=== PATIENT | female | born 1950 | race Caucasian/White ===

== ENCOUNTER → 2018-03-09 11:40 | Outpatient (CLI) | payer MEDICARE, BC, SELFPAY ==
--- NOTE | 2018-03-09 | DI.MG.S_ITS ---
BILATERAL DIGITAL SCREENING MAMMOGRAM 3D/2D WITH CAD: 03/09/2018 CLINICAL: Routine screening. Family history of breast cancer. Comparison is made to exams dated: 02/23/2017 mammogram, 02/23/2016 mammogram, and 02/21/2015 mammogram - [facility]. There are scattered fibroglandular elements in both breasts. Current study was also evaluated with a Computer Aided Detection (CAD) system. No significant masses, calcifications, or other findings are seen in either breast. There has been no significant interval change. IMPRESSION: NEGATIVE There is no mammographic evidence of malignancy. A 1 year screening mammogram is recommended. This exam was interpreted at Station ID: [id number]. NOTE: For mammograms, a report in lay terms will be sent to the patient. Approximately 15% of breast malignancies will not be visualized mammographically. In the management of a palpable breast mass, a negative mammogram must not discourage biopsy of a clinically suspicious lesion. Electronically Signed By: Terri coleman/paula:03/09/2018 12:53:02 letter sent: Normal Exam ACR BI-RADS Category 1: Negative 3341F
== END ==
PROVIDERS: Family Provider Internal Medicine; PCP Internal Medicine; Visit Provider Internal Medicine
DX: Z12.31 Encounter for screening mammogram for malignant neoplasm of breast (principal); Z80.3 Family history of malignant neoplasm of breast
CPT/HCPCS: 77063; 77067

== ENCOUNTER → 2018-11-27 09:04 | Outpatient (CLI) | payer MEDICARE, BC, SELFPAY ==
[2018-11-27 10:05] LABS: Hemoglobin A1C% w Est Avg Glu 6.5 % (4.0-6.0)
[2018-11-27 10:39] LABS: Alanine Aminotransferase 16 IU/L (9-52); Aspartate Aminotransferase 19 IU/L (14-36); BUN Creatinine Ratio 24.6 (6-22); Blood Urea Nitrogen 32 mg/dL (7-17); Calcium 10.1 mg/dL (8.4-10.2); Carbon Dioxide 24 mmol/L (22-32); Chloride 100 mmol/L (98-107); Cholesterol 166 mg/dL (140-199); Estimated Glomerular Filt Rate 40.6 mL/min (>60); Glucose 124 mg/dL (80-110); HDL Cholesterol 46 mg/dL (40-60); HEMOLYSIS < 15 (0-50); LDL Cholesterol Calculated 43 mg/dL (<100); Sodium 134 mmol/L (137-145); Triglycerides 384 mg/dL (35-150)
[2018-11-27 11:22] LABS: Vitamin B12 > 1000 pg/mL (239-931)
== END ==
PROVIDERS: PCP Internal Medicine; Visit Provider Internal Medicine
DX: E11.9 Type 2 diabetes mellitus without complications (principal); E53.8 Deficiency of other specified B group vitamins; E78.5 Hyperlipidemia, unspecified; I10 Essential (primary) hypertension
CPT/HCPCS: 36415; 80048; 80061; 82607; 83036; 84450; 84460

== ENCOUNTER → 2018-12-08 09:27 | Outpatient (CLI) | payer MEDICARE, BC, SELFPAY | PROVIDERS: PCP Internal Medicine; Visit Provider Internal Medicine | DX: Z78.0 Asymptomatic menopausal state (principal) | CPT/HCPCS: 77080 ==

== ENCOUNTER → 2019-03-24 09:39 | Outpatient (CLI) | payer MEDICARE, BC, SELFPAY ==
--- NOTE | 2019-03-24 | DI.MG.S_ITS ---
BILATERAL DIGITAL SCREENING MAMMOGRAM 3D/2D WITH CAD: 03/24/2019 CLINICAL: Routine screening. Family history of breast cancer. Comparison is made to exams dated: 03/09/2018 mammogram, 02/23/2017 mammogram, and 02/23/2016 mammogram - [facility]. There are scattered fibroglandular elements in both breasts. Current study was also evaluated with a Computer Aided Detection (CAD) system. There are benign calcifications in both breasts. No significant masses, calcifications, or other findings are seen in either breast. There has been no significant interval change. IMPRESSION: There is no mammographic evidence of malignancy. A 1 year screening mammogram is recommended. This exam was interpreted at Station ID: [id number]. NOTE: For mammograms, a report in lay terms will be sent to the patient. Approximately 15% of breast malignancies will not be visualized mammographically. In the management of a palpable breast mass, a negative mammogram must not discourage biopsy of a clinically suspicious lesion. Electronically Signed By: Scottie guevara/paula:03/26/2019 07:16:27 letter sent: Normal Exam ACR BI-RADS Category 2: Benign Finding(s) 3342F
== END ==
PROVIDERS: PCP Internal Medicine; Visit Provider Internal Medicine
DX: Z12.31 Encounter for screening mammogram for malignant neoplasm of breast (principal); Z80.3 Family history of malignant neoplasm of breast
CPT/HCPCS: 77063; 77067

== ENCOUNTER → 2019-06-28 16:57 | Outpatient (CLI) | payer MEDICARE, BC, SELFPAY ==
--- NOTE | 2019-06-28 | DI.RAD.S_ITS ---
PROCEDURE: XR KNEE LT 1TO2V INDICATIONS: ACUTE PAIN OF LEFT KNEE TECHNIQUE: 2 views of the knee were acquired. COMPARISON: None. FINDINGS: Bones: No fractures or dislocations. No suspicious bony lesions. Soft tissues: No joint effusion. No suspicious soft tissue calcifications. IMPRESSION: No trauma found. Source of acute pain is not identified. Dictated by: Chinedu Brooks M.D. on 06/29/2019 at 9:44 Approved by: Chinedu Brooks M.D. on 06/29/2019 at 9:59
== END ==
PROVIDERS: PCP Internal Medicine; Referring Provider Internal Medicine; Visit Provider Internal Medicine
DX: M25.562 Pain in left knee (principal)
CPT/HCPCS: 73560

== ENCOUNTER → 2019-07-06 08:56 | Outpatient (CLI) | payer MEDICARE, BC, SELFPAY ==
--- NOTE | 2019-07-06 | DI.MRI.S_ITS ---
PROCEDURE: MR KNEE LT WO CON INDICATIONS: LEFT KNEE PAIN TECHNIQUE: Noncontrast sagittal PD fast spin echo and T2 fast spin echo with fat saturation, sagittal 3-D FLASH with fat saturation; coronal T1 spin echo and PD fast spin echo with fat saturation, and axial PD fast spin echo with fat saturation through the knee. COMPARISON: [facility], CR, XR KNEE LT 1TO2V, 06/28/2019, 16:59. FINDINGS: Image quality: Excellent. Menisci: There is complex tear involving the body and posterior horn of the medial meniscus. The posterior root of the medial meniscus is torn. There is mild intrasubstance degeneration of the lateral meniscus without yvette meniscal tear. Cruciate ligaments: The anterior cruciate ligament appears thickened and irregular, likely sequelae of old injury (chronic partial tear and scarrimg). No acute ACL tear. The posterior cruciate ligament appears intact. Medial structures: There is grade 1-2 sprain of the distal medial collateral ligament, likely chronic. The semimembranosus tendon insertions are thickened, likely secondary to chronic tear. Visualized portions of the pes anserinus tendons appear normal. Trace amount of fluid is noted in the medial collateral ligament bursa and pes anserinus bursa. Lateral structures: The lateral collateral ligament and biceps femoris tendon appear intact. The popliteus tendon appears normal. Iliotibial band appears normal. Anterior structures: The quadriceps and patellar tendons appear intact. Patellar alignment is normal. No femoral trochlear dysplasia or ventral trochlear prominence. No edema in the infrapatellar fat pad. Bones and cartilage: No bone marrow contusions or fractures. There is tricompartmental cartilage thinning and fibrillation. Full-thickness cartilage defect is noted in the medial femorotibial compartment. Joint space: There is moderate knee joint effusion. A small Gibbs's cyst. Normal appearing synovial plicae are incidentally noted. There is a 7 mm intra-articular body in the posterior knee joint. IMPRESSION: 1. Suspect chronic partial ACL tear and scarring. 2. Complex tear of the body and posterior horn of the medial meniscus. Tear of the posterior root of the medial meniscus. 3. Grade 1-2 sprain of the distal medial collateral ligament. 4. Tricompartmental cartilage thinning and fibrillation. There is full-thickness cartilage defect in the medial femorotibial compartment. 5. Moderate knee joint effusion. 6. Small Gibbs cyst. 7. A 7 mm intra-articular body in the posterior knee joint. Dictated by: Anuradha Guardado M.D. on 07/06/2019 at 10:06 Transcribed by: NIKO on 07/06/2019 at 10:33 Approved by: Anuradha Guardado M.D. on 07/06/2019 at 11:35
== END ==
PROVIDERS: PCP Internal Medicine; Referring Provider Internal Medicine; Visit Provider Internal Medicine
DX: M25.562 Pain in left knee (principal); S83.232A Complex tear of medial meniscus, current injury, left knee, initial encounter; S83.412A Sprain of medial collateral ligament of left knee, initial encounter; M25.462 Effusion, left knee; M71.22 Synovial cyst of popliteal space [Baker], left knee
CPT/HCPCS: 73721

== ENCOUNTER → 2020-03-14 08:34 | Outpatient (CLI) | payer MEDICARE, BC, SELFPAY ==
[2020-03-14 10:33] LABS: Hemoglobin A1C% w Est Avg Glu 6.8 % (4.0-6.0)
[2020-03-14 10:34] LABS: Alanine Aminotransferase 19 IU/L (<35); Albumin 4.4 g/dL (3.5-5.0); Albumin Globulin Ratio 1.4 (1.0-2.8); Alkaline Phosphatase 53 U/L (38-126); Aspartate Aminotransferase 24 IU/L (14-36); BUN Creatinine Ratio 26.9 (6-22); Bilirubin Total 0.3 mg/dL (0.2-1.3); Blood Urea Nitrogen 36 mg/dL (7-17); Calcium 10.5 mg/dL (8.4-10.2); Carbon Dioxide 29 mmol/L (22-32); Chloride 96 mmol/L (98-107); Cholesterol 260 mg/dL (140-199); Globulin 3.2 g/dL (1.7-4.1); Glucose 106 mg/dL (80-110); HDL Cholesterol 35 mg/dL (40-60); HEMOLYSIS < 15 (0-50); Potassium 4.9 mmol/L (3.4-5.1); Sodium 133 mmol/L (137-145); Total Protein 7.6 g/dL (6.3-8.2)
[2020-03-14 10:44] LABS: Triglycerides 692 mg/dL (35-150)
== END ==
PROVIDERS: PCP Internal Medicine; Referring Provider Internal Medicine; Visit Provider Internal Medicine
DX: E78.5 Hyperlipidemia, unspecified (principal); I10 Essential (primary) hypertension; E11.9 Type 2 diabetes mellitus without complications
CPT/HCPCS: 36415; 80053; 80061; 83036

== ENCOUNTER → 2020-06-05 09:36 | Outpatient (CLI) | payer MEDICARE, BC, SELFPAY ==
--- NOTE | 2020-06-05 | DI.MRI.S_ITS ---
PROCEDURE: MR HEAD/BRAIN WO CON INDICATIONS: Tremor, unspecified TECHNIQUE: Non-contrast axial T1 spin echo, axial T2 fast spin echo, sagittal and axial FLAIR, coronal T2 fast spin echo, axial gradient echo, axial diffusion and ADC through the brain. COMPARISON: None. FINDINGS: Image quality: Excellent. CSF spaces: Ventricles appear symmetric in size and shape. Basal cisterns are patent. No extra-axial fluid collections. Brain: No intracranial bleeds or mass effects. There is mild cerebral volume loss for age. There are minimal periventricular and deep white matter chronic small vessel ischemic changes. Brainstem appears normal. Diffusion-weighted images show no acute ischemic insults. No chronic ischemic insults. Normal intravascular flow voids are present. Skull and face: Calvarial bone marrow is normal in signal. Orbits are normal. Sinuses: Minimal left maxillary sinus mucosal thickening. Remainder of the visualized paranasal sinuses and mastoids are clear. IMPRESSION: 1. MRI brain without acute intracranial abnormalities. No mass or mass effect. 2. Minimal left maxillary sinus disease. Dictated by: Scottie Ocampo M.D. on 06/05/2020 at 13:16 Approved by: Scottie Ocampo M.D. on 06/05/2020 at 13:21
== END ==
PROVIDERS: PCP Internal Medicine; Referring Provider Psychiatry & Neurology Neurology; Visit Provider Psychiatry & Neurology Neurology
DX: R25.1 Tremor, unspecified (principal)
CPT/HCPCS: 70551

== ENCOUNTER → 2020-07-03 07:20 | Outpatient (CLI) | payer MEDICARE, BC, SELFPAY ==
--- NOTE | 2020-07-03 | DI.US.S_ITS ---
PROCEDURE: US ABDOMEN COMPLETE INDICATIONS: RIGHT UPPER QUADRANT PAIN TECHNIQUE: Real-time scanning was performed of the abdominal and retroperitoneal organs, with image documentation. COMPARISON: [facility], CT, ABDOMEN/PELVIS WITH CONTRAST, 07/15/2011, 8:44. [facility], US, ABDOMEN COMPLETE, 11/15/2016, 15:47. FINDINGS: Liver: Liver is normal in size and homogeneous in echotexture. The main portal vein demonstrates normal size and demonstrates normal appearing, hepatopetal flow. Gallbladder: No findings of gallstones or sludge are seen. The gallbladder wall is not thickened, measuring 3 mm or less. No specific pericholecystic fluid is seen. The sonographic Rdz sign is negative. Biliary ducts: Intrahepatic bile ducts are non-dilated. Extrahepatic bile duct caliber measures 4 mm. Normal is 6-7 mm or less in diameter, or 10 mm or less post-cholecystectomy. Pancreas: Visualized portions of the pancreas are sonographically normal. Spleen: Spleen is normal in size and homogeneous in echotexture. Kidneys: Kidneys are normal in size and echotexture. Right kidney measures 9.4 cm long; left kidney measures 9.1 cm long. No hydronephrosis. No solid masses. Within the right superior to mid kidney, there is a 7 mm cyst seen. Within the left kidney, there is an apparent 11 mm nonobstructing hyperechoic focus seen. Aorta: Visualized aorta is normal in caliber at less than 3 cm. Iliacs: Proximal common iliac arteries are normal in caliber at less than 2.5 cm. IVC: Intrahepatic inferior vena cava is patent. Miscellaneous: No free abdominal fluid. IMPRESSION: The gallbladder demonstrates a normal sonographic appearance. No biliary dilatation is seen. Apparent nonobstructing left kidney stone. However, this may be related to artifact. Dictated by: Harmeet Dumas M.D. on 07/03/2020 at 9:05 Approved by: Harmeet Dumas M.D. on 07/03/2020 at 9:07
[2020-07-03 08:24] LABS: Alanine Aminotransferase 33 IU/L (<35); Albumin 4.8 g/dL (3.5-5.0); Albumin Globulin Ratio 1.5 (1.0-2.8); Alkaline Phosphatase 31 U/L (38-126); Aspartate Aminotransferase 32 IU/L (14-36); Bilirubin Total 0.5 mg/dL (0.2-1.3); Blood Urea Nitrogen 44 mg/dL (7-17); Calcium 10.4 mg/dL (8.4-10.2); Carbon Dioxide 29 mmol/L (22-32); Chloride 99 mmol/L (98-107); Estimated Glomerular Filt Rate 24.6 mL/min (>60); Globulin 3.2 g/dL (1.7-4.1); Glucose 126 mg/dL (80-110); HEMOLYSIS 15 (0-50); Potassium 4.5 mmol/L (3.4-5.1); Sodium 137 mmol/L (137-145)
== END ==
PROVIDERS: PCP Internal Medicine; Referring Provider Internal Medicine; Visit Provider Family Medicine
DX: R10.11 Right upper quadrant pain (principal); R19.7 Diarrhea, unspecified; E11.9 Type 2 diabetes mellitus without complications; N20.0 Calculus of kidney
CPT/HCPCS: 36415; 76700; 80053

== ENCOUNTER → 2020-08-01 10:29 | Outpatient (CLI) | payer MEDICARE, BC, SELFPAY ==
[2020-08-01 11:20] LABS: Alanine Aminotransferase 13 IU/L (<35); Albumin 4.5 g/dL (3.5-5.0); Albumin Globulin Ratio 1.6 (1.0-2.8); Alkaline Phosphatase 28 U/L (38-126); Aspartate Aminotransferase 24 IU/L (14-36); BUN Creatinine Ratio 25.2 (6-22); Bilirubin Total 0.4 mg/dL (0.2-1.3); Blood Urea Nitrogen 39 mg/dL (7-17); Calcium 9.6 mg/dL (8.4-10.2); Carbon Dioxide 26 mmol/L (22-32); Chloride 99 mmol/L (98-107); Cholesterol 206 mg/dL (140-199); Globulin 2.9 g/dL (1.7-4.1); Glucose 112 mg/dL (80-110); HDL Cholesterol 25 mg/dL (40-60); HEMOLYSIS < 15 (0-50); Potassium 5.1 mmol/L (3.4-5.1); Sodium 134 mmol/L (137-145); Total Protein 7.4 g/dL (6.3-8.2); Triglycerides 477 mg/dL (35-150)
== END ==
PROVIDERS: PCP Internal Medicine; Referring Provider Internal Medicine; Visit Provider Internal Medicine
DX: E78.2 Mixed hyperlipidemia (principal); I10 Essential (primary) hypertension
CPT/HCPCS: 36415; 80053; 80061

== ENCOUNTER → 2020-09-16 09:18 | Outpatient (CLI) | payer MEDICARE, BC, SELFPAY ==
[2020-09-16 10:49] LABS: Alanine Aminotransferase 14 IU/L (<35); Albumin 4.5 g/dL (3.5-5.0); Albumin Globulin Ratio 1.4 (1.0-2.8); Alkaline Phosphatase 28 U/L (38-126); Aspartate Aminotransferase 26 IU/L (14-36); BUN Creatinine Ratio 26.4 (6-22); Bilirubin Total 0.3 mg/dL (0.2-1.3); Blood Urea Nitrogen 47 mg/dL (7-17); Calcium 9.7 mg/dL (8.4-10.2); Carbon Dioxide 25 mmol/L (22-32); Chloride 99 mmol/L (98-107); Cholesterol 176 mg/dL (140-199); Estimated Glomerular Filt Rate 28.1 mL/min (>60); Globulin 3.2 g/dL (1.7-4.1); Glucose 103 mg/dL (80-110); HDL Cholesterol 29 mg/dL (40-60); HEMOLYSIS < 15 (0-50); LDL Cholesterol Calculated 82 mg/dL (<100); Sodium 134 mmol/L (137-145); Total Protein 7.7 g/dL (6.3-8.2); Triglycerides 325 mg/dL (35-150)
== END ==
PROVIDERS: PCP Internal Medicine; Referring Provider Internal Medicine; Visit Provider Internal Medicine
DX: I10 Essential (primary) hypertension (principal)
CPT/HCPCS: 80053; 80061; 83036

== ENCOUNTER → 2020-11-15 10:37 | Outpatient (CLI) | payer MEDICARE, BC, SELFPAY ==
--- NOTE | 2020-11-15 10:40 | DI.MG.S_ITS ---
BILATERAL DIGITAL SCREENING MAMMOGRAM 3D/2D WITH CAD: 11/15/2020 CLINICAL: Routine screening. Family history of breast cancer. Comparison is made to exams dated: 03/24/2019 mammogram, 03/09/2018 mammogram, and 02/23/2017 mammogram - [facility]. There are scattered fibroglandular elements in both breasts. Current study was also evaluated with a Computer Aided Detection (CAD) system. There are benign calcifications in both breasts. No significant masses, calcifications, or other findings are seen in either breast. There has been no significant interval change. IMPRESSION: BENIGN There is no mammographic evidence of malignancy. A 1 year screening mammogram is recommended. This exam was interpreted at Station ID: [id number]. NOTE: For mammograms, a report in lay terms will be sent to the patient. Approximately 15% of breast malignancies will not be visualized mammographically. In the management of a palpable breast mass, a negative mammogram must not discourage biopsy of a clinically suspicious lesion. Electronically Signed By: Flaco vickers/paula:11/17/2020 09:18:47 letter sent: Normal Exam ACR BI-RADS Category 2: Benign Finding(s) 3342F
== END ==
PROVIDERS: PCP Internal Medicine; Referring Provider Internal Medicine; Visit Provider Internal Medicine
DX: Z12.31 Encounter for screening mammogram for malignant neoplasm of breast (principal); Z80.3 Family history of malignant neoplasm of breast
CPT/HCPCS: 77063; 77067

== ENCOUNTER → 2020-11-25 08:59 | Outpatient (CLI) | payer MEDICARE, BC, SELFPAY ==
--- NOTE | 2020-11-25 | DI.US.S_ITS ---
PROCEDURE: US RENAL COMPLETE INDICATIONS: Chronic kidney disease, stage 4 (severe) TECHNIQUE: Real-time scanning was performed of the kidneys and bladder, with image documentation. COMPARISON: None. FINDINGS: Kidneys: Kidneys are normal in size. Right kidney measures 9.6 cm long; left kidney measures 9.1 cm long. Right renal cortical thickness is 1.2 cm; left renal cortical thickness is 1.5 cm. Renal cortical echotexture is normal. No hydronephrosis or nephrolithiasis. No suspicious solid mass lesions. Bladder: Pre-void bladder volume is 114 mL. Post-void residual is 27 mL. Pre-void images demonstrate no intraluminal masses or stones. On pre-void images, bilateral ureteral jets are noted with color Doppler interrogation. (Of note, ureteral jets may not be detectable in up to 25% of cases due to insufficient differences in specific gravity between ureteral and bladder urine). Miscellaneous: No free pelvic fluid. IMPRESSION: No hydronephrosis or nephrolithiasis found. Source of reported chronic renal insufficiency is not identified. Dictated by: Chinedu Brooks M.D. on 11/25/2020 at 12:18 Approved by: Chinedu Brooks M.D. on 11/25/2020 at 12:19
== END ==
PROVIDERS: PCP Internal Medicine; Referring Provider Student in an Organized Health Care Education/Training Program; Visit Provider Student in an Organized Health Care Education/Training Program
DX: N18.4 Chronic kidney disease, stage 4 (severe) (principal)
CPT/HCPCS: 76770

== ENCOUNTER → 2020-12-26 10:40 | Outpatient (CLI) | payer MEDICARE, BC, SELFPAY ==
[2020-12-26 11:07] LABS: Bacteria Urine None Seen; RBC Urine None Seen (0-5/HPF); WBC Urine None Seen (0-5/HPF)
[2020-12-26 11:50] LABS: Hemoglobin 11.2 g/dL (12.0-16.0)
[2020-12-26 11:54] LABS: Blood Urea Nitrogen 38 mg/dL (7-17); Calcium 9.9 mg/dL (8.4-10.2); Carbon Dioxide 26 mmol/L (22-32); Chloride 101 mmol/L (98-107); Estimated Glomerular Filt Rate 35.3 mL/min (>60); Glucose 260 mg/dL (80-110); HEMOLYSIS < 15 (0-50); Phosphorous 3.2 mg/dL (2.8-4.1); Potassium 4.3 mmol/L (3.4-5.1); Sodium 136 mmol/L (137-145)
[2020-12-26 12:28] LABS: Appearance Urine UA CLEAR; Bilirubin Urine UA NEGATIVE (NEGATIVE); Color Urine UA YELLOW; Glucose Urine UA 2+ g/dL (Negative); Ketones Urine UA NEGATIVE (NEGATIVE); Leukocyte Esterase Urine UA NEGATIVE (NEGATIVE); Nitrite Urine UA NEGATIVE (Negative); Occult Blood Urine UA NEGATIVE (Negative); Protein Urine UA NEGATIVE (Negative); Urobilinogen Urine UA 0.2 E.U./dL (0.2)
[2020-12-26 12:38] LABS: Culture Indicated Urine Cult Not Indicated; Urine Comments Microscopic Normal
[2020-12-26 15:20] LABS: Creatinine Urine Random 45.1 mg/dL; Protein (Total) Urine Random 9 mg/dL (0-12); Protein Creatinine Ratio Urine 0.19 GRAM/24H
[2020-12-27 09:38] LABS: Parathyroid Hormone Int 20 pg/mL (15-65)
== END ==
PROVIDERS: PCP Internal Medicine; Referring Provider Student in an Organized Health Care Education/Training Program; Visit Provider Student in an Organized Health Care Education/Training Program
DX: N05.9 Unspecified nephritic syndrome with unspecified morphologic changes (principal); D64.9 Anemia, unspecified; E83.30 Disorder of phosphorus metabolism, unspecified; N25.81 Secondary hyperparathyroidism of renal origin; N30.00 Acute cystitis without hematuria; R80.9 Proteinuria, unspecified
CPT/HCPCS: 36415; 80048; 81001; 82570; 83970; 84100; 84156; 85014; 85018

== ENCOUNTER → 2021-05-06 11:35 | Outpatient (CLI) | payer MEDICARE, BC, SELFPAY ==
[2021-05-06 12:04] LABS: Hematocrit 35.5 % (36-46); Hemoglobin 11.9 g/dL (12.0-16.0)
[2021-05-06 12:16] LABS: BUN Creatinine Ratio 23.2 (6-22); Blood Urea Nitrogen 39 mg/dL (7-17); Carbon Dioxide 31 mmol/L (22-32); Chloride 103 mmol/L (98-107); Estimated Glomerular Filt Rate 29.9 mL/min (>60); Glucose 130 mg/dL (80-110); HEMOLYSIS < 15 (0-50); Potassium 4.2 mmol/L (3.4-5.1); Sodium 143 mmol/L (137-145)
[2021-05-06 16:00] LABS: Protein (Total) Urine Random 33 mg/dL (0-12); Protein Creatinine Ratio Urine 0.61 GRAM/24H
[2021-05-07 05:44] LABS: Parathyroid Hormone Int 22 pg/mL (15-65)
== END ==
PROVIDERS: PCP Internal Medicine; Referring Provider Student in an Organized Health Care Education/Training Program; Visit Provider Student in an Organized Health Care Education/Training Program
DX: N05.9 Unspecified nephritic syndrome with unspecified morphologic changes (principal); D64.9 Anemia, unspecified; N25.81 Secondary hyperparathyroidism of renal origin; R80.9 Proteinuria, unspecified
CPT/HCPCS: 36415; 80048; 82570; 83970; 84156; 85014; 85018

== ENCOUNTER → 2021-08-08 10:39 | Outpatient (CLI) | payer MEDICARE, BC, SELFPAY ==
[2021-08-08 11:08] LABS: Hematocrit 34.5 % (36-46); Hemoglobin 11.8 g/dL (12.0-16.0)
[2021-08-08 11:28] LABS: BUN Creatinine Ratio 27.3 (6-22); Blood Urea Nitrogen 44 mg/dL (7-17); Calcium 9.3 mg/dL (8.4-10.2); Carbon Dioxide 28 mmol/L (22-32); Chloride 101 mmol/L (98-107); Estimated Glomerular Filt Rate 31.5 mL/min (>60); Glucose 226 mg/dL (80-110); HEMOLYSIS < 15 (0-50); Potassium 4.4 mmol/L (3.4-5.1); Sodium 139 mmol/L (137-145)
[2021-08-08 13:44] LABS: Creatinine Urine Random 110.2 mg/dL; Protein (Total) Urine Random 13 mg/dL (0-12); Protein Creatinine Ratio Urine 0.11 GRAM/24H
[2021-08-09 12:11] LABS: Parathyroid Hormone Int 31 pg/mL (15-65)
== END ==
PROVIDERS: PCP Internal Medicine; Referring Provider Student in an Organized Health Care Education/Training Program; Visit Provider Student in an Organized Health Care Education/Training Program
DX: N05.9 Unspecified nephritic syndrome with unspecified morphologic changes (principal); R80.9 Proteinuria, unspecified; D64.9 Anemia, unspecified; N25.81 Secondary hyperparathyroidism of renal origin
CPT/HCPCS: 36415; 80048; 82570; 83970; 84156; 85014; 85018

== ENCOUNTER → 2021-09-16 10:53 | Outpatient (CLI) | payer MEDICARE, BC, SELFPAY ==
[2021-09-16 11:42] LABS: BUN Creatinine Ratio 25.9 (6-22); Blood Urea Nitrogen 43 mg/dL (7-17); Calcium 9.3 mg/dL (8.4-10.2); Carbon Dioxide 27 mmol/L (22-32); Chloride 104 mmol/L (98-107); Estimated Glomerular Filt Rate 33 mL/min (>60); Glucose 281 mg/dL (80-110); HEMOLYSIS < 15 (0-50); Potassium 4.6 mmol/L (3.4-5.1); Sodium 141 mmol/L (137-145)
== END ==
PROVIDERS: PCP Internal Medicine; Referring Provider Student in an Organized Health Care Education/Training Program; Visit Provider Student in an Organized Health Care Education/Training Program
DX: N05.9 Unspecified nephritic syndrome with unspecified morphologic changes (principal)
CPT/HCPCS: 36415; 80048

== ENCOUNTER → 2021-10-09 09:44 | Outpatient (CLI) | payer MEDICARE, BC, SELFPAY ==
[2021-10-09 11:06] LABS: Hemoglobin A1C% w Est Avg Glu 6.7 % (4.0-6.0)
[2021-10-09 11:11] LABS: Alanine Aminotransferase 5 IU/L (<35); Albumin 4.7 g/dL (3.5-5.0); Albumin Globulin Ratio 1.5 (1.0-2.8); Alkaline Phosphatase 31 U/L (38-126); Aspartate Aminotransferase 20 IU/L (14-36); BUN Creatinine Ratio 20.6 (6-22); Bilirubin Total 0.5 mg/dL (0.2-1.3); Blood Urea Nitrogen 40 mg/dL (7-17); Calcium 9.5 mg/dL (8.4-10.2); Carbon Dioxide 27 mmol/L (22-32); Chloride 103 mmol/L (98-107); Cholesterol 68 mg/dL (140-199); Estimated Glomerular Filt Rate 27 mL/min (>60); Globulin 3.1 g/dL (1.7-4.1); Glucose 144 mg/dL (80-110); HDL Cholesterol 24 mg/dL (40-60); HEMOLYSIS < 15 (0-50); LDL Cholesterol Calculated 8 mg/dL (<100); Potassium 4.6 mmol/L (3.4-5.1); Sodium 139 mmol/L (137-145); Total Protein 7.8 g/dL (6.3-8.2); Triglycerides 179 mg/dL (35-150)
== END ==
PROVIDERS: PCP Internal Medicine; Referring Provider Internal Medicine; Visit Provider Internal Medicine
DX: E11.22 Type 2 diabetes mellitus with diabetic chronic kidney disease (principal); N18.32 Chronic kidney disease, stage 3b; E78.2 Mixed hyperlipidemia; I12.9 Hypertensive chronic kidney disease with stage 1 through stage 4 chronic kidney disease, or unspecified chronic kidney disease
CPT/HCPCS: 36415; 80053; 80061; 83036

== ENCOUNTER → 2021-10-15 10:22 | Outpatient (CLI) | payer MEDICARE, BC, SELFPAY ==
--- NOTE | 2021-10-15 | DI.RAD.S_ITS ---
PROCEDURE: XR HIP W PEL IF DONE RT 2V INDICATIONS: Pain in right hip TECHNIQUE: Two views of the hip were acquired. COMPARISON: None. FINDINGS: Bones: No fractures or dislocations. No suspicious bony lesions. The visualized pelvic ring mild bilateral hip joint space narrowing with marginal osteophytosis. No suspicious lytic or blastic osseous lesion. Normal morphology of the femoral heads and acetabula. Sacroiliac joint spaces maintained. IMPRESSION: Mild bilateral hip osteoarthritis. Dictated by: Nahun Zamora M.D. on 10/15/2021 at 11:46 Approved by: Nahun Zamora M.D. on 10/15/2021 at 11:46
== END ==
PROVIDERS: PCP Internal Medicine; Referring Provider Internal Medicine; Visit Provider Internal Medicine
DX: M25.551 Pain in right hip (principal); M16.0 Bilateral primary osteoarthritis of hip
CPT/HCPCS: 73502

== ENCOUNTER → 2021-11-21 09:52 | Outpatient (CLI) | payer MEDICARE, BC, SELFPAY ==
--- NOTE | 2021-11-21 09:53 | DI.MG.S_ITS ---
BILATERAL DIGITAL SCREENING MAMMOGRAM 3D/2D WITH CAD: 11/21/2021 CLINICAL: Routine screening. Family history of breast cancer. Comparison is made to exams dated: 11/15/2020 mammogram, 03/24/2019 mammogram, 03/09/2018 mammogram, and 02/23/2017 mammogram - [facility]. There are scattered fibroglandular elements in both breasts. Current study was also evaluated with a Computer Aided Detection (CAD) system. There are benign calcifications in both breasts. No significant masses, calcifications, or other findings are seen in either breast. There has been no significant interval change. IMPRESSION: BENIGN There is no mammographic evidence of malignancy. A 1 year screening mammogram is recommended. Based on the Tyrer Cuzick model (a risk assessment model) the patient's lifetime risk is 4.8% and her 10 year risk is 3.6%. According to the ACR, ACS, and NCCN guidelines, an annual breast MRI exam along with mammogram is recommended if the patient's lifetime risk is 20% or greater. This exam was interpreted at Station ID: [id number]. NOTE: For mammograms, a report in lay terms will be sent to the patient. Approximately 15% of breast malignancies will not be visualized mammographically. In the management of a palpable breast mass, a negative mammogram must not discourage biopsy of a clinically suspicious lesion. Electronically Signed By: Conrad carter/paula:11/23/2021 09:04:12 letter sent: Normal Exam ACR BI-RADS Category 2: Benign Finding(s) 3342F
== END ==
PROVIDERS: PCP Internal Medicine; Referring Provider Internal Medicine; Visit Provider Internal Medicine
DX: Z12.31 Encounter for screening mammogram for malignant neoplasm of breast (principal); Z80.3 Family history of malignant neoplasm of breast
CPT/HCPCS: 77063; 77067

== ENCOUNTER → 2022-01-07 10:50 | Outpatient (CLI) | payer MEDICARE, BC, SELFPAY ==
[2022-01-07 12:31] LABS: Hematocrit 37.9 % (36-46); Hemoglobin 12.8 g/dL (12.0-16.0)
[2022-01-07 12:37] LABS: BUN Creatinine Ratio 20.9 (6-22); Blood Urea Nitrogen 28 mg/dL (7-17); Calcium 9.1 mg/dL (8.4-10.2); Carbon Dioxide 26 mmol/L (22-32); Chloride 104 mmol/L (98-107); Estimated Glomerular Filt Rate 42 mL/min (>60); Glucose 187 mg/dL (80-110); HEMOLYSIS < 15 (0-50); Potassium 4.1 mmol/L (3.4-5.1); Sodium 138 mmol/L (137-145)
[2022-01-07 15:07] LABS: Creatinine Urine Random 172.7 mg/dL; Protein (Total) Urine Random 6 mg/dL (0-12); Protein Creatinine Ratio Urine 0.03 GRAM/24H
[2022-01-08 05:47] LABS: Parathyroid Hormone Int 32 pg/mL (15-65)
== END ==
PROVIDERS: PCP Internal Medicine; Referring Provider Student in an Organized Health Care Education/Training Program; Visit Provider Student in an Organized Health Care Education/Training Program
DX: N05.9 Unspecified nephritic syndrome with unspecified morphologic changes (principal); D64.9 Anemia, unspecified; N25.81 Secondary hyperparathyroidism of renal origin; R80.9 Proteinuria, unspecified
CPT/HCPCS: 36415; 80048; 82570; 83970; 84156; 85014; 85018

== ENCOUNTER → 2022-06-03 11:14 | Outpatient (CLI) | payer MEDICARE, BC, SELFPAY ==
[2022-06-03 11:54] LABS: Hematocrit 40.2 % (36-46); Hemoglobin 13.5 g/dL (12.0-16.0)
[2022-06-03 12:02] LABS: Blood Urea Nitrogen 31 mg/dL (7-17); Calcium 10.1 mg/dL (8.4-10.2); Carbon Dioxide 23 mmol/L (22-32); Chloride 99 mmol/L (98-107); Estimated Glomerular Filt Rate 41 mL/min (>60); Glucose 309 mg/dL (80-110); HEMOLYSIS < 15 (0-50); Potassium 4.1 mmol/L (3.4-5.1); Sodium 137 mmol/L (137-145)
[2022-06-03 15:28] LABS: Creatinine Urine Random 230.7 mg/dL; Protein (Total) Urine Random 11 mg/dL (0-12); Protein Creatinine Ratio Urine 0.04 GRAM/24H
[2022-06-04 10:49] LABS: Parathyroid Hormone Int 12 pg/mL (15-65)
== END ==
PROVIDERS: PCP Internal Medicine; Referring Provider Student in an Organized Health Care Education/Training Program; Visit Provider Student in an Organized Health Care Education/Training Program
DX: N05.9 Unspecified nephritic syndrome with unspecified morphologic changes (principal); D64.9 Anemia, unspecified; N25.81 Secondary hyperparathyroidism of renal origin; R80.9 Proteinuria, unspecified
CPT/HCPCS: 36415; 80048; 82570; 83970; 84156; 85014; 85018

== ENCOUNTER → 2022-09-14 09:43 | Outpatient (CLI) | payer MEDICARE, BC, SELFPAY ==
--- NOTE | 2022-09-14 | DI.RAD.S_ITS ---
PROCEDURE: XR KNEE RT 3V INDICATIONS: KNEE PAIN TECHNIQUE: 3 views of the knee were acquired. COMPARISON: [facility], CR, XR KNEE LT 1TO2V, 06/28/2019, 16:59. FINDINGS: Bones: No fractures or dislocations. No suspicious bony lesions. Soft tissues: No joint effusion. No suspicious soft tissue calcifications. IMPRESSION: No acute fracture. No osseous lesion. If symptoms and/or clinical suspicion for pathology persist, further assessment with repeat, or advanced imaging (e.g., CT, MRI, or bone scan) may be helpful for further assessment. Dictated by: Millicent Hoover M.D. on 09/14/2022 at 10:39 Approved by: Millicent Hoover M.D. on 09/14/2022 at 10:40
--- NOTE | 2022-09-14 | DI.RAD.S_ITS ---
PROCEDURE: XR KNEE LT 3V INDICATIONS: KNEE PAIN TECHNIQUE: 3 views of the knee were acquired. COMPARISON: [facility], CR, XR KNEE 4+ VIEWS BILATERAL, 02/16/2022, 10:33. [facility], CR, XR KNEE LT 1TO2V, 06/28/2019, 16:59. FINDINGS: Bones: No fractures or dislocations. No suspicious bony lesions. Mild tricompartmental joint space narrowing. Spurring of the lateral patellofemoral compartments is present. Soft tissues: No joint effusion. No suspicious soft tissue calcifications. IMPRESSION: No acute osseous abnormality. Tricompartmental degenerative changes of the knee are present. If symptoms persist, follow-up radiographs and/or CT or MRI may be helpful for further evaluation. Dictated by: Mauro Blackburn M.D. on 09/14/2022 at 11:00 Approved by: Mauro Blackburn M.D. on 09/14/2022 at 11:05
== END ==
PROVIDERS: PCP Internal Medicine; Referring Provider Internal Medicine; Visit Provider Internal Medicine
DX: M25.561 Pain in right knee (principal); M25.562 Pain in left knee; G89.29 Other chronic pain
CPT/HCPCS: 73562

== ENCOUNTER → 2022-10-25 10:16 | Outpatient (CLI) | payer MEDICARE, BC, SELFPAY ==
[2022-10-25 12:19] LABS: Hematocrit 39.7 % (36-46); Hemoglobin 13.5 g/dL (12.0-16.0)
[2022-10-25 12:51] LABS: BUN Creatinine Ratio 24.2 (6-22); Blood Urea Nitrogen 32 mg/dL (7-17); Calcium 9.6 mg/dL (8.4-10.2); Carbon Dioxide 27 mmol/L (22-32); Chloride 98 mmol/L (98-107); Estimated Glomerular Filt Rate 43 mL/min (>60); Glucose 244 mg/dL (80-110); HEMOLYSIS < 15 (0-50); Potassium 3.9 mmol/L (3.4-5.1); Sodium 135 mmol/L (137-145)
[2022-10-27 11:16] LABS: Parathyroid Hormone Int 13 pg/mL (15-65)
== END ==
PROVIDERS: PCP Internal Medicine; Referring Provider Student in an Organized Health Care Education/Training Program; Visit Provider Student in an Organized Health Care Education/Training Program
DX: D64.9 Anemia, unspecified (principal); R80.9 Proteinuria, unspecified; N05.9 Unspecified nephritic syndrome with unspecified morphologic changes; N25.81 Secondary hyperparathyroidism of renal origin
CPT/HCPCS: 36415; 80048; 83970; 85014; 85018

== ENCOUNTER → 2023-01-18 09:46 | Outpatient (CLI) | payer MEDICARE, BC, SELFPAY ==
--- NOTE | 2023-01-18 | DI.MG.S_ITS ---
BILATERAL DIGITAL SCREENING MAMMOGRAM 3D/2D WITH CAD: 01/18/2023 CLINICAL: Routine screening. Family history of breast cancer. Comparison is made to exams dated: 11/21/2021 mammogram, 11/15/2020 mammogram, and 03/24/2019 mammogram - [facility]. There are scattered areas of fibroglandular density in both breasts (category b / 25%-50% glandular tissue). Current study was also evaluated with a Computer Aided Detection (CAD) system. There is a developing irregular high density focal asymmetry in the right breast at 7 o'clock anterior depth. No other significant masses, calcifications, or other findings are seen in either breast. IMPRESSION: INCOMPLETE: NEEDS ADDITIONAL IMAGING EVALUATION The developing irregular high density focal asymmetry in the right breast is indeterminate. Additional views with possible ultrasound are recommended. Based on the Tyrer Cuzick model (a risk assessment model) the patient's lifetime risk is 4.5% and her 10 year risk is 3.7%. According to the ACR, ACS, and NCCN guidelines, an annual breast MRI exam along with mammogram is recommended if the patient's lifetime risk is 20% or greater. This exam was interpreted at Station ID: [id number]. NOTE: For mammograms, a report in lay terms will be sent to the patient. Approximately 15% of breast malignancies will not be visualized mammographically. In the management of a palpable breast mass, a negative mammogram must not discourage biopsy of a clinically suspicious lesion. Electronically Signed By: Tasneem orellana/paula:01/18/2023 12:53:39 letter sent: Additional Imaging Needed ACR BI-RADS Category 0: Incomplete 3340F
== END ==
PROVIDERS: PCP Internal Medicine; Referring Provider Internal Medicine; Visit Provider Internal Medicine
DX: Z12.31 Encounter for screening mammogram for malignant neoplasm of breast (principal); Z80.3 Family history of malignant neoplasm of breast
CPT/HCPCS: 77063; 77067

== ENCOUNTER → 2023-01-31 08:34 | Outpatient (CLI) | payer MEDICARE, BC, SELFPAY ==
--- NOTE | 2023-01-31 | DI.US.S_ITS ---
LIMITED ULTRASOUND OF RIGHT BREAST: 01/31/2023 CLINICAL: Patient returns today to evaluate a focal asymmetry in the right breast. Comparison is made to exams dated: 01/31/2023 mammogram, 01/18/2023 mammogram, 11/21/2021 mammogram, and 11/15/2020 mammogram - [facility]. Color flow and real-time ultrasound of the right breast 9 o'clock region were performed. No sonographic abnormality is seen in the right breast at 9 o'clock, 4 cm from the nipple. IMPRESSION: NEGATIVE Right breast superimposition of normal breast tissue with confirmatory negative ultrasound. No mammographic or sonographic evidence of malignancy. Recommend routine annual mammogram screening in 1 year. Findings and recommendations were conveyed to the patient during today's evaluation. This exam was interpreted at Station ID: [id number]. Electronically Signed By: Geno horn/:02/01/2023 12:42:31 letter sent: Normal Exam Ultrasound BI-RADS: 1 Negative
--- NOTE | 2023-01-31 | DI.MG.S_ITS ---
UNILATERAL RIGHT DIGITAL DIAGNOSTIC MAMMOGRAM 3D/2D WITH ADDITIONAL VIEWS: 01/31/2023 CLINICAL: Additional evaluation requested from prior study. Comparison is made to exams dated: 01/18/2023 mammogram, 11/21/2021 mammogram, and 11/15/2020 mammogram - [facility]. There are scattered areas of fibroglandular density in the right breast (category b / 25%-50% glandular tissue). The focal asymmetry seen on recent screening mammogram did not persist with additional imaging, and is consistent with superimposition of normal breast breast. No significant masses, calcifications, or other findings are seen in the breast. IMPRESSION: INCOMPLETE: NEEDS ADDITIONAL IMAGING EVALUATION No mammographic evidence of malignancy. Recommend further evaluation with targeted breast ultrasound, which will immediately follow this exam. Based on the Tyrer Cuzick model (a risk assessment model) the patient's lifetime risk is 4.2% and her 10 year risk is 3.8%. According to the ACR, ACS, and NCCN guidelines, an annual breast MRI exam along with mammogram is recommended if the patient's lifetime risk is 20% or greater. This exam was interpreted at Station ID: [id number]. NOTE: For mammograms, a report in lay terms will be sent to the patient. Approximately 15% of breast malignancies will not be visualized mammographically. In the management of a palpable breast mass, a negative mammogram must not discourage biopsy of a clinically suspicious lesion. Electronically Signed By: Geno Harvey M.D. esb/:02/01/2023 12:21:34 ACR BI-RADS Category 0: Incomplete 3340F
== END ==
PROVIDERS: PCP Internal Medicine; Referring Provider Internal Medicine; Visit Provider Internal Medicine
DX: R92.8 Other abnormal and inconclusive findings on diagnostic imaging of breast (principal)
CPT/HCPCS: 76642; 77065; G0279

== ENCOUNTER → 2023-04-18 10:03 | Outpatient (CLI) | payer MEDICARE, BC, SELFPAY ==
[2023-04-18 11:17] LABS: Hematocrit 39.1 % (36-46); Hemoglobin 13.5 g/dL (12.0-16.0)
[2023-04-18 12:11] LABS: BUN Creatinine Ratio 23.3 (6-22); Blood Urea Nitrogen 30 mg/dL (7-17); Calcium 9.7 mg/dL (8.4-10.2); Carbon Dioxide 25 mmol/L (22-32); Chloride 99 mmol/L (98-107); Estimated Glomerular Filt Rate 44 mL/min (>60); Glucose 136 mg/dL (80-110); HEMOLYSIS < 15 (0-50); Potassium 4.3 mmol/L (3.4-5.1); Sodium 135 mmol/L (137-145)
[2023-04-19 14:29] LABS: Creatinine Urine Random 59.7 mg/dL; Protein (Total) Urine Random 14 mg/dL (0-12); Protein Creatinine Ratio Urine 0.23 GRAM/24H
[2023-04-20 06:55] LABS: Parathyroid Hormone Int 29 pg/mL (15-65)
== END ==
PROVIDERS: PCP Internal Medicine; Referring Provider Student in an Organized Health Care Education/Training Program; Visit Provider Student in an Organized Health Care Education/Training Program
DX: N05.9 Unspecified nephritic syndrome with unspecified morphologic changes (principal); D70.9 Neutropenia, unspecified; D63.1 Anemia in chronic kidney disease; N25.81 Secondary hyperparathyroidism of renal origin; R80.9 Proteinuria, unspecified
CPT/HCPCS: 36415; 80048; 82570; 83970; 84156; 85014; 85018

== ENCOUNTER → 2023-12-21 10:27 | Outpatient (CLI) | payer MEDICARE, BC, SELFPAY ==
[2023-12-21 11:51] LABS: Hematocrit 40.3 % (36-46); Hemoglobin 13.7 g/dL (12.0-16.0)
[2023-12-21 12:05] LABS: BUN Creatinine Ratio 23.1 (6-22); Blood Urea Nitrogen 30 mg/dL (7-17); Calcium 9.2 mg/dL (8.4-10.2); Carbon Dioxide 24 mmol/L (22-32); Chloride 104 mmol/L (98-107); Estimated Glomerular Filt Rate 43 mL/min (>60); Glucose 146 mg/dL (80-110); HEMOLYSIS < 15 (0-50); Potassium 4.5 mmol/L (3.4-5.1); Sodium 138 mmol/L (137-145)
[2023-12-21 12:19] LABS: Creatinine Urine Random 221.49 mg/dL; Protein (Total) Urine Random 15 mg/dL (0-12); Protein Creatinine Ratio Urine 0.06 GRAM/24H
== END ==
PROVIDERS: PCP Internal Medicine; Referring Provider Student in an Organized Health Care Education/Training Program; Visit Provider Student in an Organized Health Care Education/Training Program
DX: N05.9 Unspecified nephritic syndrome with unspecified morphologic changes (principal); D70.9 Neutropenia, unspecified; D63.1 Anemia in chronic kidney disease; R80.9 Proteinuria, unspecified; N25.81 Secondary hyperparathyroidism of renal origin
CPT/HCPCS: 36415; 80048; 82570; 83970; 84156; 85014; 85018

== ENCOUNTER 2024-01-10 13:54 | Emergency (ER) | payer MEDICARE, BC, SELFPAY ==
[2024-01-10 14:01] VITALS: BP 182/89; PULSE 62; RESP 18; TEMP 36.6; O2SAT 98; BMI 24.0
--- NOTE | 2024-01-10 15:15 | EKG_ITS ---
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
[2024-01-10 15:18] LABS: Add Manual Diff / Slide Review NO; Basophils Absolute Auto 100 /uL (0-100); Basophils Percent Auto 0.9 % (0-2); Eosinophils Absolute Auto 200 /uL (0-450); Eosinophils Percent Auto 2.5 % (2-4); Hematocrit 41.7 % (36-46); Hemoglobin 14.3 g/dL (12.0-16.0); Lymphocytes Absolute Auto 1800 /uL (1100-4500); Lymphocytes Percent Auto 22.4 % (25-40); Mean Corpuscular HGB Conc 34.4 % (30-36); Mean Corpuscular Hemoglobin 32.7 PG (26-34); Monocytes Absolute Auto 900 /uL (0-900); Monocytes Percent Auto 11.5 % (3-14); Neutrophils Absolute Auto 5000 /uL (1500-7000); Neutrophils Percent Auto 62.7 % (50-75); Platelet Count 253 X10^3/uL (150-400); Red Blood Cell Count 4.39 X10^6/uL (4.0-5.2); Red Cell Distribution Width 12.7 % (11.6-14.8); White Blood Cell Count 8.1 X10^3/uL (4.5-11.0)
[2024-01-10 15:25] LABS: Alanine Aminotransferase 11 IU/L (<35); Albumin Globulin Ratio 1.4 (1.0-2.8); Alkaline Phosphatase 55 U/L (38-126); Aspartate Aminotransferase 21 IU/L (14-36); BUN Creatinine Ratio 25.9 (6-22); Bilirubin Total 0.8 mg/dL (0.2-1.3); Blood Urea Nitrogen 35 mg/dL (7-17); Calcium 10.6 mg/dL (8.4-10.2); Carbon Dioxide 17 mmol/L (22-32); Chloride 106 mmol/L (98-107); Estimated Glomerular Filt Rate 41 mL/min (>60); Globulin 3.5 g/dL (1.7-4.1); Glucose 153 mg/dL (80-110); HEMOLYSIS 48 (0-50); Lipase 222 U/L (23-300); Potassium 4.5 mmol/L (3.4-5.1); Sodium 138 mmol/L (137-145); Total Protein 8.5 g/dL (6.3-8.2)
[2024-01-10] MEDS: KETOROLAC 30 MG/ML VIAL 15 MG IV (15:28)
--- NOTE | 2024-01-10 15:34 | PC.NURSE ---
Addendum entered by Marimar Ramos R.N. 01/10/24 15:58: Reassessed pt pain and pt states that she is resting more comfortably. Pt not writing in pain and rates pain as 5/10. Original Note: Pt writing in pain in bed. States that her abd is burning and now radiating into her lower back and thighs. Dr Masterson notified and placed order for 15mg IV toradol. Pt ambulated to bathroom independently and with steady gait.
--- NOTE | 2024-01-10 15:38 | PC.NURSE ---
DIRECTOR OF PRODUCT MANAGEMENT note: pt. requested warm blanket. this associate director of sales brought in warm blanket and helped reposition pt. several times, and brought in extra pillow for support, but pt. could not seem to get comfortable and verbalized pain was worsening. RN notified.
[2024-01-10 16:22] LABS: Bacteria Urine Occasional (0-1); RBC Urine None Seen (0-5/HPF); Squamous Epithelial Cell Urine 0-1 /HPF (0-5/HPF); Urine Volume 10mL (spun); WBC Urine None Seen (0-5/HPF)
[2024-01-10 16:23] LABS: Culture Indicated Urine Cult Not Indicated
== END 2024-01-10 17:33 | disposition left against medical advice (07) ==
PROVIDERS: Emergency Provider Emergency Medicine; PCP Internal Medicine
DX: R30.0 Dysuria (principal); R50.9 Fever, unspecified; R10.9 Unspecified abdominal pain; I48.92 Unspecified atrial flutter
CPT/HCPCS: 36415; 80053; 81003; 81015; 83690; 85025; 93005; 93010; 99284; J1885

== ENCOUNTER 2024-01-18 17:29 | Emergency (ER) | payer MEDICARE, BC, SELFPAY ==
[2024-01-18] VITALS (17 sets, daily range): BP systolic 105–160; BP diastolic 58–112; PULSE 63–94; RESP 16–42; TEMP 36.6; O2SAT 94–100; BMI 23.8
[2024-01-18] MEDS: ONDANSETRON 4 MG/2 ML INJ IV (17:58)
[2024-01-18 18:13] LABS: Add Manual Diff / Slide Review NO; Basophils Absolute Auto 0 /uL (0-100); Basophils Percent Auto 0.9 % (0-2); Eosinophils Absolute Auto 100 /uL (0-450); Eosinophils Percent Auto 1.8 % (2-4); Hematocrit 39.3 % (36-46); Hemoglobin 13.5 g/dL (12.0-16.0); Lymphocytes Absolute Auto 1700 /uL (1100-4500); Lymphocytes Percent Auto 28.3 % (25-40); Mean Corpuscular HGB Conc 34.3 % (30-36); Mean Corpuscular Hemoglobin 33.1 PG (26-34); Mean Corpuscular Volume 96.3 fL (80-100); Monocytes Absolute Auto 600 /uL (0-900); Monocytes Percent Auto 11.1 % (3-14); Neutrophils Absolute Auto 3400 /uL (1500-7000); Neutrophils Percent Auto 57.9 % (50-75); Platelet Count 217 X10^3/uL (150-400); Red Blood Cell Count 4.08 X10^6/uL (4.0-5.2); Red Cell Distribution Width 12.3 % (11.6-14.8); White Blood Cell Count 5.9 X10^3/uL (4.5-11.0)
[2024-01-18 18:30] LABS: Alanine Aminotransferase 11 IU/L (<35); Albumin 4.6 g/dL (3.5-5.0); Albumin Globulin Ratio 1.6 (1.0-2.8); Alkaline Phosphatase 60 U/L (38-126); Aspartate Aminotransferase 21 IU/L (14-36); BUN Creatinine Ratio 25.7 (6-22); Blood Urea Nitrogen 47 mg/dL (7-17); Calcium 10.4 mg/dL (8.4-10.2); Carbon Dioxide 17 mmol/L (22-32); Chloride 101 mmol/L (98-107); Estimated Glomerular Filt Rate 29 mL/min (>60); Globulin 2.9 g/dL (1.7-4.1); Glucose 122 mg/dL (80-110); HEMOLYSIS < 15 (0-50); Lipase 286 U/L (23-300); Potassium 4.3 mmol/L (3.4-5.1); Sodium 134 mmol/L (137-145); Total Protein 7.5 g/dL (6.3-8.2)
--- NOTE | 2024-01-18 18:43 | PC.NURSE ---
iv placed by another nurse
--- NOTE | 2024-01-18 18:50 | PC.NURSE ---
yulia was hyperventilating when she first got into the room. she was coached to slow her breathing down. The patient's breathing leveled off around 14 Rpm. provider aware.
[2024-01-18] MEDS: SODIUM CHLORIDE 0.9% 1,000 ML 1000 ML IV ×2 (18:52→21:39)
[2024-01-18 19:02] LABS: Lactate (Lactic Acid) 2.8 mmol/L (0.7-2.1)
--- NOTE | 2024-01-18 19:12 | PC.NURSE ---
Patient in room and breathing fast. Patient's stated that the patient isn't doing well. Provider and charge made aware. Will continue to monitor
--- NOTE | 2024-01-18 19:21 | EKG_ITS ---
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
--- NOTE | 2024-01-18 19:22 | EKG_ITS ---
[facility] [address] [place] [address] Test Date: 2024-01-18 Pat Name: Mónica Banuelos Department: 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
[2024-01-18] MEDS: LORazepam 2 MG/ML INJ 0.5 MG IV (19:53)
[2024-01-18 20:29] LABS: Reflexed Lactate in 2 Hours Y
--- NOTE | 2024-01-18 20:48 | ED.DIZZY ---
HPI - Dizziness General Chief Complaint: Weakness Stated Complaint: dizzy, sob, nausea Time Seen by Provider: 01/18/24 18:49 Source: patient, RN notes reviewed and other Mode of arrival: Wheelchair Limitations: no limitations History of Present Illness HPI Narrative: 73-year-old history of Parkinson's disease, hypertension, [id number] diabetes, dyslipidemia who presents with complaint of urinary symptoms with frequency and sense of urgency since last Tuesday. Patient was treating herself with fluids and Pyridium. She was deemed to be seen here in the emergency department and left [facility]. Patient states she saw the physician was started on Bactrim but then started having nausea and vomiting she has had no fevers but had chills. Describes nausea and vomiting has felt lightheaded but no syncope. States it has not like the room is spinning but that she was going to pass out. Denies any chest pain or shortness of breath. Denies any cold cough or congestion symptoms. States no real abdominal pain other than pressure in the bladder area and urgency and frequency. States she has been urinating regularly and feels like she is emptying her bladder when she does. She states normal bowel movements with no black or bloody stools. Denies any headaches, denies any swelling in extremities. She does not have a tremor at baseline. Patient states she is on carbidopa levodopa for her Parkinson's takes her medications in the morning and at 4:00 p.m.. She has had both doses today. Denies any prior strokes or heart attacks. States she has had a prior hysterectomy. Denies any drug allergies other than sensitivities. No tobacco, alcohol or recreational drugs. Dr. Khan is her primary care physician. Related Data Home Medications Medication Instructions Recorded Confirmed metformin 500 mg tablet ##0 11/17/09 (Glucophage) aspirin 81 mg tablet,delayed 81 mg PO QDAY ##0 11/15/16 release citalopram 10 mg tablet 10 mg PO QDAY ##0 11/15/16 lisinopril 10 mg tablet 10 mg PO QDAY ##0 11/15/16 methocarbamol 750 mg tablet 750 mg PO QIDP PRN ##0 11/15/16 niacin 1,000 mg tablet,extended 1,000 mg PO QDAY ##0 11/15/16 release Allergies Allergy/AdvReac Type Severity Reaction Status Date / Time No Known Drug Allergies Allergy Verified 01/10/24 14:04 Review of Systems Review of Systems ROS Unobtainable: All systems reviewed & are unremarkable except as noted in HPI and below Patient History Social History Smoking Status: Never smoker Smoking Status: Never smoker Substance Use Type: does not use Exam Narrative Exam Narrative: GEN: Female, alert and oriented x 3, patient appears to be in moderate distress. HEENT: Atraumatic, pupils are equal round reactive to light, extraocular movements are intact, nares are clear, there is no conjunctival pallor. Throat is clear without any exudates, erythema, tonsillar enlargement or uvular deviation HEART: Regular rate and rhythm without murmur, clicks, rubs. Pulses are equal in upper and lower extremities LUNGS:Lungs clear to auscultation, no wheezes, rales, crackles, chest moves symmetrically ABD:bowel sounds normal, soft, mild suprapubic tenderness. Mildly distended but soft. No guarding, rebound, rigidity, no masses noted, no hepatosplenomegaly :No CVA tenderness MSCL: Non-tender, no muscle atrophy, muscles strength 5/5 upper and lower extremities, full range of motion NEURO:CN 2-12 intact, sensation normal, patient has mild generalized tremor particularly upper extremities. Initial Vital Signs Initial Vital Signs: Vital Signs Temperature 97.8 F 01/18/24 17:32 Pulse Rate 94 H 01/18/24 17:32 Respiratory Rate 16 01/18/24 17:32 Blood Pressure 139/58 L 01/18/24 17:32 Pulse Oximetry 96 01/18/24 17:32 Oxygen Delivery Method Room Air 01/18/24 17:32 Course Orders Ordered: ED Orders 01/18/24 21:10 CT abdomen pelvis wo con Stat 01/18/24 21:35 Covid-19 + FLU A/B + RSV - PCR Stat Discontinued Medications Sodium Chloride (Normal Saline 0.9%) 1,000 mls @ 1,000 mls/hr IV BOLUS ONE Stop: 01/18/24 19:48 Last Infusion: 01/18/24 19:49 Dose: Infused Documented By: Admin: 01/18/24 18:52 Dose: 1,000 mls/hr Documented By: DOMINICK Sodium Chloride (Normal Saline 0.9%) 1,000 mls @ 1,000 mls/hr IV BOLUS ONE Stop: 01/18/24 22:10 Last Infusion: 01/18/24 22:41 Dose: Infused Documented By: Admin: 01/18/24 21:39 Dose: 1,000 mls/hr Documented By: DAWN Piperacillin Sod/Tazobactam (Sod 4.5 gm/ Sodium Chloride) 100 mls @ 200 mls/hr IV NOW ONE Stop: 01/18/24 21:17 Last Infusion: 01/18/24 22:10 Dose: Infused Documented By: Admin: 01/18/24 21:40 Dose: 200 mls/hr Documented By: DAWN Lorazepam (Lorazepam 2 Mg/Ml Inj) 0.5 mg IV NOW ONE Stop: 01/18/24 19:50 Last Admin: 01/18/24 19:53 Dose: 0.5 mg Documented By: DEVIKA Morphine Sulfate (Morphine 4 Mg/Ml Inj) 4 mg IV NOW ONE Stop: 01/18/24 21:11 Last Admin: 01/18/24 21:40 Dose: 4 mg Documented By: DAWN Ondansetron HCl (Ondansetron 4 Mg/2 Ml Inj) 4 mg IV NOW PRN PRN Reason: Nausea And Vomiting Last Admin: 01/18/24 17:58 Dose: 4 mg Documented By: YSABEL Ondansetron HCl (Ondansetron 4 Mg Odt) 4 mg PO NOW PRN PRN Reason: Nausea And Vomiting Vital Signs Vital signs: Vital Signs - 8 hr 01/18/24 21:00 01/18/24 21:30 01/18/24 21:34 Temperature Pulse Rate 82 80 90 Respiratory Rate 28 H 20 23 Blood Pressure Pulse Oximetry 94 99 99 Oxygen Delivery Method Room Air 01/18/24 21:34 01/18/24 22:00 01/18/24 22:00 Temperature Pulse Rate 90 Respiratory Rate 29 H Blood Pressure 154/75 H 151/112 H Pulse Oximetry 99 Oxygen Delivery Method 01/18/24 22:30 01/18/24 22:30 01/18/24 23:00 Temperature Pulse Rate 77 Respiratory Rate 19 Blood Pressure 160/69 H 157/71 H Pulse Oximetry 98 Oxygen Delivery Method 01/18/24 23:00 01/18/24 23:42 Temperature 97.9 F Pulse Rate 79 Respiratory Rate 19 Blood Pressure Pulse Oximetry 98 Oxygen Delivery Method MDM - Dizziness Lab Data 01/18/24 17:56 01/18/24 17:56 Labs: Lab Results 01/18/24 01/18/24 01/18/24 Range/Units 17:56 21:01 21:35 WBC 5.9 (4.5-11.0) X10^3/uL RBC 4.08 (4.0-5.2) X10^6/uL Hgb 13.5 (12.0-16.0) g/dL Hct 39.3 (36-46) % MCV 96.3 (80-100) fL MCH 33.1 (26-34) PG MCHC 34.3 (30-36) % RDW 12.3 (11.6-14.8) % Plt Count 217 (150-400) X10^3/uL Neut % (Auto) 57.9 (50-75) % Lymph % (Auto) 28.3 (25-40) % [place] % (Auto) 11.1 (3-14) % Eos % (Auto) 1.8 L (2-4) % Baso % (Auto) 0.9 (0-2) % Neut # (Auto) 3400 (4481-1383) /uL Lymph # (Auto) 1700 (9902-0099) /uL [place] # (Auto) 600 (0-900) /uL Eos # (Auto) 100 (0-450) /uL Baso # (Auto) 0 (0-100) /uL Sodium 134 L (137-145) mmol/L Potassium 4.3 (3.4-5.1) mmol/L Chloride 101 (98-107) mmol/L Carbon Dioxide 17 L (22-32) mmol/L BUN 47 H (7-17) mg/dL Creatinine 1.83 H (0.52-1.04) mg/dL Estimated GFR 29 L (>60) mL/min BUN/Creatinine Ratio 25.7 H (6-22) Glucose 122 H (80-110) mg/dL Lactate 2.8 H 2.4 H (0.7-2.1) mmol/L Calcium 10.4 H (8.4-10.2) mg/dL Total Bilirubin 1.0 (0.2-1.3) mg/dL AST 21 (14-36) IU/L ALT 11 (<35) IU/L Alkaline Phosphatase 60 (38-126) U/L Total Protein 7.5 (6.3-8.2) g/dL Albumin 4.6 (3.5-5.0) g/dL Globulin 2.9 (1.7-4.1) g/dL Albumin/Globulin Ratio 1.6 (1.0-2.8) Lipase 286 (23-300) U/L SARS-CoV-2 (PCR) Negative (Negative) Influenza A (RT-PCR) Flu a negative (NEGATIVE) Influenza B (RT-PCR) Flu b negative (NEGATIVE) RSV (PCR) Negative (Negative) Point of Care Testing Glucose POC 107 Urine Dip Bedside Urine Glucose Negative Bedside Urine Bilirubin - Negative Bedside Urine Ketone +/- 5 Urine Specific Duarte 1.010 Bedside Urine Occult Blood - Negative Bedside Urine pH 6 Bedside Urine Protein - Negative Bedside Urine Urobilinogen - Negative Bedside Urine Nitrite - Negative Bedside Urine Leukocytes - Negative Esterase Imaging Data CT scan - abdomen/pelvis: Radiologist's Impression: [place] [address] CT Scan Report Signed Patient: Mónica Banuelos MR#: [id number] : 1950 Acct:[id number] Age/Sex: 73 / F Date of Service: 01/18/24 Loc: ED Accession Number: [id number] Procedure: CT abdomen pelvis wo con Ordering Provider: Sharon Masterson D.O. PROCEDURE: CT ABDOMEN PELVIS WO CON INDICATIONS: nausea/vomiting x 1 week TECHNIQUE: Axial sections were acquired from the lung bases to the pubic symphysis. Coronal and sagittal reformats were performed. For radiation dose reduction, the following was used: automated exposure control, adjustment of mA and/or kV according to patient size. COMPARISON: None. FINDINGS: Image quality: Diagnostic. Lower Chest: No significant findings. URINARY: Right Kidney: No stones or hydronephrosis. Right Ureter: No hydroureter. Left Kidney: No stones or hydronephrosis. Left Ureter: No hydroureter. Bladder: Normal wall thickness. No stones. ABDOMEN: Liver: No contour-deforming solid mass. Gallbladder: No radiopaque gallstones or wall thickening. Biliary ducts: No biliary dilation. Pancreas: No ductal dilation. Spleen: Size is within normal limits. Adrenal Glands: No adrenal nodules. Stomach and Bowel: Normal colonic caliber, without significant wall thickening. Normal appendix. Oral contrast in the colon. Peritoneum: No abnormal intraperitoneal fluid. No free air. Ventral Wall: No hernia. Abdominal Nodes: No enlarged retroperitoneal or mesenteric lymph nodes. Vessels: Aorta and inferior vena cava are normal in size. PELVIS: Pelvic Organs: Uterus is absent. Pelvic Nodes: Unremarkable. Miscellaneous: No inguinal hernias are seen. Bones: No suspicious osseous lesion. IMPRESSION: 1. No kidney stones. No hydronephrosis. 2. Normal appendix. No free fluid. No small bowel obstruction. Dictated by: Conrad Wheeler M.D. on 01/18/2024 at 22:14 Approved by: Conrad Wheeler M.D. on 01/18/2024 at 22:19 ECG Data Attestation: I personally reviewed and interpreted this ECG as follows: Prior ECG tracings: available for review Interpretation: Sinus rhythm marked sinus arrhythmia, rate of 78 FL 158 QRS 88 QTC 487, no acute ST elevation nonspecific change. Patient has prior from 01/10/2024 which showed atrial flutter with a 6:1 rate. MDM Narrative Medical decision making narrative: Labs show white count of 5.9 hemoglobin of 13 platelets of 217. Sodium 134 potassium of 4.3 chloride of 05/09/2016 CO2 47 BUN creatinine of 1.83 elevated from priors of 1.2-1.3 in the past 6 months, glucose is 122 with a lactate of 2.8 calcium 10.4 bilirubin AST ALT alk-phos are all normal lipase is 286. Lactate was elevated at 2.8 Repeat lactate is 2.4 Point of care urine is negative EKG shows sinus rhythm marked sinus arrhythmia rate of 78 FL 158 QRS 88 QTC 487, no acute ST elevation nonspecific change. Patient continues to have suprapubic discomfort she did request something for pain although she states has been super painful. Discussed obtain CT abdomen pelvis to evaluate for possible sigmoid diverticulitis, urinary obstruction or other changes. Patient was given fluids, was given additional dose of fluids. Did have some Ativan for anxiety. Patient had more discomfort given dose of pain medication. CT abdomen pelvis, no kidney stones, no hydro normal appendix no free fluid no small bowel obstruction. BACK: Back is nontender and free of any obvious external abnormalities. Patient exam is absent of any decreased range of motion, muscle spasm, CVA tenderness, or vertebral point tenderness. There are no symptoms of cauda equina such as saddle anesthesia, and decreased reflexes, decreased sensation or strength. Without significant wall thickening. Bladder scan shows 160 after urinating. Patient has been multiple times to the commode. Frequency here does not show clear infection was sent for urine culture and ordered. Discussed with patient she has been requiring some assistance to the commode. She states she feels much better. She is requesting discharge home we did discuss observation and it was offered. Do not have a clear source of her symptoms but after discussion patient elects to return home. We did note her lactate level was elevated had improved but not totally resolved. Discharge Plan Departure Patient Disposition: Home Clinical Impression: Urinary frequency Activity Restrictions/Additional Instructions: Please follow up for recheck in the next 24 hours. Your workup today did not show a clear source for your symptoms but you could potentially have not infection. Your lactate was elevated at improved but not totally normalized. Your creatinine was elevated somewhat from your baseline. This should be rechecked in the next day or so. Please return if you are feeling worse, if you are having fevers, recurrent lightheadedness or passing out, new chest pain or shortness of breath, new abdominal back or flank pain, vomiting, black or bloody stools, worsening difficulty with urination or other new or concerning changes. Prescriptions: No Action metformin [Glucophage] 500 MG tablet Qty: 0 lisinopril 10 MG tablet 10 mg PO QDAY Qty: 0 citalopram 10 MG tablet 10 mg PO QDAY Qty: 0 aspirin 81 MG tablet,delayed release (DR/EC) 81 mg PO QDAY Qty: 0 niacin 1,000 MG tablet extended release 1,000 mg PO QDAY Qty: 0 methocarbamol 750 MG tablet 750 mg PO QIDP PRNQty: 0 Referrals: Angie Khan MD [Primary Care Provider] - Stand Alone Forms: Patient Portal/API
--- NOTE | 2024-01-18 21:10 | DI.CT.S_ITS ---
PROCEDURE: CT ABDOMEN PELVIS WO CON INDICATIONS: nausea/vomiting x 1 week TECHNIQUE: Axial sections were acquired from the lung bases to the pubic symphysis. Coronal and sagittal reformats were performed. For radiation dose reduction, the following was used: automated exposure control, adjustment of mA and/or kV according to patient size. COMPARISON: None. FINDINGS: Image quality: Diagnostic. Lower Chest: No significant findings. URINARY: Right Kidney: No stones or hydronephrosis. Right Ureter: No hydroureter. Left Kidney: No stones or hydronephrosis. Left Ureter: No hydroureter. Bladder: Normal wall thickness. No stones. ABDOMEN: Liver: No contour-deforming solid mass. Gallbladder: No radiopaque gallstones or wall thickening. Biliary ducts: No biliary dilation. Pancreas: No ductal dilation. Spleen: Size is within normal limits. Adrenal Glands: No adrenal nodules. Stomach and Bowel: Normal colonic caliber, without significant wall thickening. Normal appendix. Oral contrast in the colon. Peritoneum: No abnormal intraperitoneal fluid. No free air. Ventral Wall: No hernia. Abdominal Nodes: No enlarged retroperitoneal or mesenteric lymph nodes. Vessels: Aorta and inferior vena cava are normal in size. PELVIS: Pelvic Organs: Uterus is absent. Pelvic Nodes: Unremarkable. Miscellaneous: No inguinal hernias are seen. Bones: No suspicious osseous lesion. IMPRESSION: 1. No kidney stones. No hydronephrosis. 2. Normal appendix. No free fluid. No small bowel obstruction. Dictated by: Conrad Wheeler M.D. on 01/18/2024 at 22:14 Approved by: Conrad Wheeler M.D. on 01/18/2024 at 22:19
[2024-01-18 21:29] LABS: Lactate 2HR (Lactic Acid Rflx) 2.4 mmol/L (0.7-2.1)
[2024-01-18] MEDS: PIPERACILLIN/TAZO 4.5 GM in SODIUM CHLORIDE 0.9% 100 ML IV (21:40)
[2024-01-18] MEDS: MORPHINE 4 MG/ML INJ IV (21:40)
[2024-01-18 22:23] LABS: Influenza A - CEPHEID Flu A NEGATIVE (NEGATIVE); Influenza B - CEPHEID Flu B NEGATIVE (NEGATIVE); Respiratory Syncytial Virus Negative (Negative)
[2024-01-18 22:27] LABS: COVID-19 CEPHEID 4-PLEX PCR Negative (Negative)
== END 2024-01-18 23:43 | disposition home or self-care (01) ==
PROVIDERS: Emergency Medicine; Emergency Provider Emergency Medicine; PCP Internal Medicine
DX: R35.0 Frequency of micturition (principal); I49.9 Cardiac arrhythmia, unspecified; F41.9 Anxiety disorder, unspecified
CPT/HCPCS: 0241U; 74176; 80053; 81003; 82962; 83605; 83690; 85025; 93005; 96361; 96365; 96375; 99283; 99284; J2060; J2270; J2405; J2543

== ENCOUNTER → 2024-04-13 10:59 | Outpatient (CLI) | payer MEDICARE, BC, SELFPAY ==
--- NOTE | 2024-04-13 11:01 | DI.MRI.S_ITS ---
PROCEDURE: MR KNEE RT WO CON INDICATIONS: PAIN IN RIGHT KNEE TECHNIQUE: Noncontrast sagittal PD fast spin echo and T2 fast spin echo with fat saturation, sagittal 3-D FLASH with fat saturation; coronal T1 spin echo and PD fast spin echo with fat saturation, and axial PD fast spin echo with fat saturation through the knee. COMPARISON: [facility], CR, XR KNEE 4+ VIEWS BILATERAL, 03/29/2024, 10:49. [facility], MR, MR KNEE LT WO CON, 07/06/2019, 9:27. FINDINGS: Image quality: Excellent. Menisci: In the medial meniscus, there is mildly complex, predominantly horizontal longitudinal tear of the posterior horn, extending to the meniscus body. Mild extrusion of the medial meniscus body. In the lateral meniscus, the posterior root is not well visualized. Horizontal tear of the lateral meniscus body. No extrusion of the lateral meniscus body. Cruciate ligaments: The anterior and posterior cruciate ligaments appear intact. Medial structures: The medial collateral ligament appears intact. Moderate tendinosis of the distal semimembranosus at the tibial insertion. Lateral structures: The lateral collateral ligament, long and short heads of the biceps femoris tendon appear intact. The popliteus tendon appears normal; the popliteofibular ligament appears intact. The posterosuperior and anteroinferior popliteomeniscal fascicles appear intact. The arcuate and fabellofibular ligaments appear intact, on either side of the lateral inferior geniculate artery. Iliotibial band appears normal. Anterior structures: The quadriceps and patellar tendons appear intact. Patellar alignment is normal. No femoral trochlear dysplasia or ventral trochlear prominence. No edema in the infrapatellar fat pad. Bones and cartilage: There is moderate size high-grade chondral loss in the medial patellar facet. Mild chondral irregularity of the lateral patellar facet. Large area full-thickness chondral loss in the central trochlea. In the medial compartment, there is high-grade chondral loss in the weight-bearing portion of the medial femoral condyle. In the lateral compartment, there is mild chondral thinning in the weight-bearing portion of the lateral femoral condyle. No acute fracture. Joint space: Large knee effusion with synovitis. Large popliteal cyst. Popliteal vasculature is unremarkable. No intra-articular body. IMPRESSION: 1. Tear of the medial and lateral meniscus, medial greater than lateral. 2. Moderate tendinosis of distal semimembranosus. 3. Moderate, medial compartment predominant chondrosis. 4. Large knee effusion with synovitis. 5. Large popliteal cyst. Dictated by: Alexa Narayan M.D. on 04/13/2024 at 13:13 Approved by: Alexa Narayan M.D. on 04/13/2024 at 13:24
== END ==
PROVIDERS: PCP Internal Medicine; Referring Provider Orthopaedic Surgery Adult Reconstructive Orthopaedic Surgery; Visit Provider Orthopaedic Surgery Adult Reconstructive Orthopaedic Surgery
DX: S83.231A Complex tear of medial meniscus, current injury, right knee, initial encounter (principal); S83.281A Other tear of lateral meniscus, current injury, right knee, initial encounter; M94.261 Chondromalacia, right knee; M25.561 Pain in right knee; M25.461 Effusion, right knee; M71.21 Synovial cyst of popliteal space [Baker], right knee; M65.98 Unspecified synovitis and tenosynovitis, other site
CPT/HCPCS: 73721

== ENCOUNTER 2024-04-19 21:03 | Emergency (ER) | payer MEDICARE, BC, SELFPAY ==
[2024-04-19] VITALS (9 sets, daily range): BP systolic 150–191; BP diastolic 65–91; PULSE 52–81; RESP 13–27; TEMP 37.1; O2SAT 95–100; BMI 23.1
--- NOTE | 2024-04-19 21:20 | ED_ITS ---
HPI - General Adult General Chief complaint: Nausea/Vomiting/Diarrhea Stated complaint: nausea Time Seen by Provider: 04/19/24 21:19 History of Present Illness HPI narrative: 74-year-old female with history of parkinsonism, reports flu symptoms and cough last week that seemed to get better, now feeling muscle aches and chills today, some frequency of urination but not painful urination, she is concerned that she might have bladder infection, also concerned it might just be her parkinsonism acting up, concerned about infection. She denies chest pain or shortness of breath, currently apparently not coughing, but is concerned about COVID, we would like screening. Has new nausea, no emesis, no loose stools, no black or red stools. Denies abdominal cramping or abdominal pain. Denies flank pain. Denies chest discomfort shortness of breath. Denies headache, neck pain, photophobia. Related Data Home Medications Medication Instructions Recorded Confirmed metformin 500 mg tablet ##0 11/17/09 (Glucophage) aspirin 81 mg tablet,delayed 81 mg PO QDAY ##0 11/15/16 release citalopram 10 mg tablet 10 mg PO QDAY ##0 11/15/16 lisinopril 10 mg tablet 10 mg PO QDAY ##0 11/15/16 methocarbamol 750 mg tablet 750 mg PO QIDP PRN ##0 11/15/16 niacin 1,000 mg tablet,extended 1,000 mg PO QDAY ##0 11/15/16 release Previous Rx's Medication Instructions Recorded cefdinir 300 mg capsule 300 mg PO BID 10 days #20 caps 04/19/24 Allergies Allergy/AdvReac Type Severity Reaction Status Date / Time No Known Drug Allergies Allergy Verified 01/10/24 14:04 Review of Systems Review of Systems Narrative: see HPI Patient History Social History Smoking Status: Never smoker Smoking Status: Never smoker Exam Narrative Exam Narrative: GENERAL: Well-developed patient, in mild distress. HEAD: Atraumatic. Normocephalic. EYES: Pupils equal round and reactive. Extraocular motions intact. No scleral icterus. No injection or drainage. ENT: Nose without bleeding, purulent drainage. Throat without erythema, tonsillar hypertrophy or exudate. Airway patent. NECK: Trachea midline. Non tender CARDIOVASCULAR: Regular rate and rhythm without murmurs, gallops, or rubs. RESPIRATORY: Clear to auscultation. Breath sounds equal bilaterally. No wheezes, rales, or rhonchi. GASTROINTESTINAL: Abdomen soft, non-tender, nondistended. EXTREMITIES: No edema or joint tenderness. BACK: Nontender without deformity or crepitance. No flank tenderness. NEURO: AOx3. Motor functions grossly nonfocal. Some jitteriness/tremulousness, not particularly consistent with parkinsonism, although history of parkinsonism noted. SKIN: No rash or erythema of visible areas Initial Vital Signs Initial Vital Signs: Vital Signs Pulse Oximetry 99 04/19/24 21:09 Course Orders Ordered: ED Orders 04/19/24 21:09 EKG-12 Lead Stat 04/19/24 21:15 Urinalysis and Microscopic Stat Urine Culture Stat 04/19/24 21:21 Complete Blood Count AUTO DIFF Stat Comprehensive Metabolic Panel Stat Lactate (Lactic Acid) Stat Lipase Stat Troponin I Stat 04/19/24 21:55 Respiratory Panel (Film Array) Stat 04/19/24 22:09 CT abdomen pelvis w con Stat 04/20/24 00:05 XR chest 1V Stat Discontinued Medications Carbidopa/Levodopa (Carbidopa-Levodopa 25/100 Tablet) 2 each PO NOW ONE Stop: 04/19/24 22:22 Last Admin: 04/19/24 22:33 Dose: 2 each Documented By: JULIANNA Cefdinir (Cefdinir 300 Mg Capsule) 300 mg PO NOW ONE Stop: 04/19/24 23:33 Last Admin: 04/19/24 23:42 Dose: 300 mg Documented By: JULIANNA Sodium Chloride (Normal Saline 0.9%) 1,000 mls @ 500 mls/hr IV BOLUS ONE Stop: 04/19/24 23:46 Last Infusion: 04/20/24 00:02 Dose: Infused Documented By: Admin: 04/19/24 21:58 Dose: 500 mls/hr Documented By: JULIANNA Sodium Chloride (Normal Saline 0.9%) 1,000 mls @ 1,000 mls/hr IV BOLUS ONE Stop: 04/19/24 23:07 Last Infusion: 04/20/24 00:02 Dose: Infused Documented By: Admin: 04/19/24 23:10 Dose: 1,000 mls/hr Documented By: JULIANNA Lorazepam (Lorazepam 2 Mg/Ml Inj) 1 mg IV NOW ONE Stop: 04/19/24 22:12 Last Admin: 04/19/24 22:17 Dose: 1 mg Documented By: JULIANNA Ondansetron HCl (Ondansetron 4 Mg Odt Prepack) 1 bottle MISC DIRECTED ONE Stop: 04/19/24 23:46 Last Admin: 04/20/24 01:01 Dose: 1 bottle Vital Signs Vital signs: Vital Signs - 8 hr 04/19/24 21:09 04/19/24 21:10 04/19/24 21:16 Temperature 98.7 F Pulse Rate 81 63 Respiratory Rate 21 Blood Pressure 150/80 H Pulse Oximetry 99 100 98 Oxygen Delivery Method Room Air 04/19/24 21:30 04/19/24 21:46 04/19/24 21:46 Temperature Pulse Rate 62 62 Respiratory Rate 27 H Blood Pressure 187/87 H Pulse Oximetry 99 99 Oxygen Delivery Method 04/19/24 22:00 04/19/24 22:00 04/19/24 22:45 Temperature Pulse Rate 63 60 Respiratory Rate 15 Blood Pressure 191/91 H Pulse Oximetry 98 99 Oxygen Delivery Method 04/19/24 22:51 04/19/24 22:51 04/19/24 23:30 Temperature Pulse Rate 63 52 L Respiratory Rate 13 15 Blood Pressure 167/65 H Pulse Oximetry 95 97 Oxygen Delivery Method 04/20/24 00:00 04/20/24 00:30 04/20/24 00:55 Temperature Pulse Rate 70 53 L Respiratory Rate 14 22 Blood Pressure 157/88 H Pulse Oximetry Oxygen Delivery Method 04/20/24 00:55 04/20/24 01:00 04/20/24 01:14 Temperature 98.2 F Pulse Rate 60 66 59 L Respiratory Rate 27 H 18 20 Blood Pressure 157/88 H Pulse Oximetry 90 L 97 Oxygen Delivery Method Room Air Medical Decision Making Lab Data Lab results reviewed: Yes I reviewed the patient's lab results. Lab results narrative: White blood cell count 7800, hemoglobin 14.2, platelets adequate. BUN 27 with creatinine 1.29, glucose 147, electrolytes unremarkable, serum CO2 20. Calcium 11.6 slight elevation, normal albumin noted. Troponin negative unmeasurable. Liver functions and lipase normal. Urinalysis pending. 04/19/24 21:21 04/19/24 21:21 Labs: Lab Results 04/19/24 04/19/24 04/19/24 Range/Units 21:15 21:21 21:55 WBC 7.8 (4.5-11.0) X10^3/uL RBC 4.34 (4.0-5.2) X10^6/uL Hgb 14.2 (12.0-16.0) g/dL Hct 40.8 (36-46) % MCV 94.0 (80-100) fL MCH 32.6 (26-34) PG MCHC 34.7 (30-36) % RDW 12.4 (11.6-14.8) % Plt Count 225 (150-400) X10^3/uL Neut % (Auto) 62.1 (50-75) % Lymph % (Auto) 25.9 (25-40) % [place] % (Auto) 10.3 (3-14) % Eos % (Auto) 1.2 L (2-4) % Baso % (Auto) 0.5 (0-2) % Neut # (Auto) 4900 (8986-1640) /uL Lymph # (Auto) 2000 (2529-3540) /uL [place] # (Auto) 800 (0-900) /uL Eos # (Auto) 100 (0-450) /uL Baso # (Auto) 0 (0-100) /uL Sodium 135 L (137-145) mmol/L Potassium 3.7 (3.4-5.1) mmol/L Chloride 101 (98-107) mmol/L Carbon Dioxide 20 L (22-32) mmol/L BUN 27 H (7-17) mg/dL Creatinine 1.29 H (0.52-1.04) mg/dL Estimated GFR 43 L (>60) mL/min BUN/Creatinine Ratio 20.9 (6-22) Glucose 147 H (80-110) mg/dL Lactate 3.5 H (0.7-2.1) mmol/L Calcium 11.6 H (8.4-10.2) mg/dL Total Bilirubin 1.0 (0.2-1.3) mg/dL AST 25 (14-36) IU/L ALT 18 (<35) IU/L Alkaline Phosphatase 57 (38-126) U/L Troponin I < 0.012 (0.01-0.034) ng/mL Total Protein 8.2 (6.3-8.2) g/dL Albumin 4.6 (3.5-5.0) g/dL Globulin 3.6 (1.7-4.1) g/dL Albumin/Globulin Ratio 1.3 (1.0-2.8) Lipase 168 (23-300) U/L Urine Color [place] Urine Appearance Clear Urine pH TNP Ur Specific [place] TNP Urine Protein TNP Urine Glucose (UA) TNP Urine Ketones TNP Urine Occult Blood TNP Urine Nitrate TNP Urine Bilirubin TNP Urine Urobilinogen TNP Ur Leukocyte Esterase TNP Urine RBC None seen (0-5/HPF) Urine WBC 0-1/hpf (0-5/HPF) Ur Squamous Epith Cells 0-1 /hpf (0-5/HPF) Urine Bacteria Occasional (0-1) (None) Ur Culture Indicated? Specimen cultured Vol Urine Centrifuged 10ml (spun) Chlamy pneumoniae PCR Not detected (Not Detect) Adenovirus (PCR) Not detected (Not Detect) B. pertussis DNA (PCR) Not detected (Not Detect) B.parapertussis DNA PCR Not detected (Not Detecte) Coronavirus OC43 (PCR) Not detected (Not Detect) Coronavirus HKU1 (PCR) Not detected (Not Detect) Coronavirus 229E (PCR) Not detected (Not Detect) SARS-CoV-2 (PCR) Not detected (Not Detecte) Coronavirus NL63 (PCR) Not detected (Not Detect) Human Metapneumovir PCR Not detected (Not Detect) Influenza Type A (PCR) Not detected (Not Detect) Influenza Type B (PCR) Not detected (Not Detect) M. pneumoniae (PCR) Not detected (Not Detect) Parainfluenza 1 (PCR) Not detected (Not Detect) Parainfluenza 2 (PCR) Not detected (Not Detect) Parainfluenza 3 (PCR) Not detected (Not Detect) Parainfluenza 4 (PCR) Not detected (Not Detect) RSV (PCR) Not detected (Not Detect) Entero/Rhino (PCR) Not detected (Not Detect) 04/19/24 Range/Units 23:59 WBC (4.5-11.0) X10^3/uL RBC (4.0-5.2) X10^6/uL Hgb (12.0-16.0) g/dL Hct (36-46) % MCV (80-100) fL MCH (26-34) PG MCHC (30-36) % RDW (11.6-14.8) % Plt Count (150-400) X10^3/uL Neut % (Auto) (50-75) % Lymph % (Auto) (25-40) % [place] % (Auto) (3-14) % Eos % (Auto) (2-4) % Baso % (Auto) (0-2) % Neut # (Auto) (6416-9955) /uL Lymph # (Auto) (8035-0143) /uL [place] # (Auto) (0-900) /uL Eos # (Auto) (0-450) /uL Baso # (Auto) (0-100) /uL Sodium (137-145) mmol/L Potassium (3.4-5.1) mmol/L Chloride (98-107) mmol/L Carbon Dioxide (22-32) mmol/L BUN (7-17) mg/dL Creatinine (0.52-1.04) mg/dL Estimated GFR (>60) mL/min BUN/Creatinine Ratio (6-22) Glucose (80-110) mg/dL Lactate 1.0 (0.7-2.1) mmol/L Calcium (8.4-10.2) mg/dL Total Bilirubin (0.2-1.3) mg/dL AST (14-36) IU/L ALT (<35) IU/L Alkaline Phosphatase (38-126) U/L Troponin I (0.01-0.034) ng/mL Total Protein (6.3-8.2) g/dL Albumin (3.5-5.0) g/dL Globulin (1.7-4.1) g/dL Albumin/Globulin Ratio (1.0-2.8) Lipase (23-300) U/L Urine Color Urine Appearance Urine pH Ur Specific [place] Urine Protein Urine Glucose (UA) Urine Ketones Urine Occult Blood Urine Nitrate Urine Bilirubin Urine Urobilinogen Ur Leukocyte Esterase Urine RBC (0-5/HPF) Urine WBC (0-5/HPF) Ur Squamous Epith Cells (0-5/HPF) Urine Bacteria (None) Ur Culture Indicated? Vol Urine Centrifuged Chlamy pneumoniae PCR (Not Detect) Adenovirus (PCR) (Not Detect) B. pertussis DNA (PCR) (Not Detect) B.parapertussis DNA PCR (Not Detecte) Coronavirus OC43 (PCR) (Not Detect) Coronavirus HKU1 (PCR) (Not Detect) Coronavirus 229E (PCR) (Not Detect) SARS-CoV-2 (PCR) (Not Detecte) Coronavirus NL63 (PCR) (Not Detect) Human Metapneumovir PCR (Not Detect) Influenza Type A (PCR) (Not Detect) Influenza Type B (PCR) (Not Detect) M. pneumoniae (PCR) (Not Detect) Parainfluenza 1 (PCR) (Not Detect) Parainfluenza 2 (PCR) (Not Detect) Parainfluenza 3 (PCR) (Not Detect) Parainfluenza 4 (PCR) (Not Detect) RSV (PCR) (Not Detect) Entero/Rhino (PCR) (Not Detect) Imaging Data CT scan - abdomen/pelvis: Radiologist's Impression: [place] [address] CT Scan Report Signed Patient: Mónica Banuelos MR#: [id number] : 1950 Acct:[id number] Age/Sex: 74 / F Date of Service: 04/19/24 Loc: ED Accession Number: [id number] Procedure: CT abdomen pelvis w con Ordering Provider: Austin Ramos MD PROCEDURE: CT ABDOMEN PELVIS W CON INDICATIONS: abd pain TECHNIQUE: After the administration of intravenous contrast, axial sections acquired from the lung bases to the pubic symphysis. Coronal and sagittal reformats were performed. For radiation dose reduction, the following was used: automated exposure control, adjustment of mA and/or kV according to patient size. COMPARISON: [facility], CT, CT ABDOMEN PELVIS WO CON, 01/18/2024, 21:24. FINDINGS: Image quality: Diagnostic. Lower Chest: No significant findings. ABDOMEN: Liver: No solid mass. Gallbladder: No radiopaque gallstones or wall thickening. Biliary ducts: No biliary dilation. Pancreas: No ductal dilation. Spleen: Size is within normal limits. Adrenal Glands: No adrenal nodules. Kidneys and Ureters: No hydronephrosis. Left kidney inferior pole exophytic cyst with increased density measuring 0.8 cm, (2/50), unchanged. Likely a complicated cyst. A few additional low-density cysts. Stomach and Bowel: Stomach is within normal limits. Duodenal diverticulum. No small bowel obstruction. Normal appendix. No diverticulitis. Peritoneum: No abnormal intraperitoneal fluid. No free air. Ventral Wall: No significant ventral hernia. Abdominal Nodes: No retroperitoneal or mesenteric adenopathy by size criteria. Vessels: Aorta and inferior vena cava are normal in size. PELVIS: Pelvic Organs: The appendix is not seen. Bladder: No bladder wall thickening, accounting for underdistention. Pelvic Nodes: No enlarged lymph nodes. Miscellaneous: No inguinal hernias are seen. Bones: No aggressive osseous abnormality. IMPRESSION: No acute abnormality seen. Dictated by: Conrad Wheeler M.D. on 04/19/2024 at 22:52 Approved by: Conrad Wheeler M.D. on 04/19/2024 at 22:59 Chest x-ray: Radiologist's Impression: [place] [address] XRay Report Signed Patient: Mónica Banuelos MR#: [id number] : 1950 Acct:[id number] Age/Sex: 74 / F Date of Service: 04/20/24 Loc: ED Accession Number: [id number] Procedure: XR chest 1V Ordering Provider: Austin Ramos MD PROCEDURE: XR CHEST 1V INDICATIONS: myalgias, eval for pneumonia TECHNIQUE: One view of the chest was acquired. COMPARISON: None. FINDINGS: Surgical changes and devices: None. Lungs and pleura: Lungs are clear. No pleural effusions or pneumothorax. Mediastinum: Mediastinal contours appear normal. Heart size is normal. Bones and chest wall: No suspicious bony lesions. Overlying soft tissues appear unremarkable. IMPRESSION: No acute cardiopulmonary abnormality is seen. Dictated by: Conrad Wheeler M.D. on 04/20/2024 at 0:58 Approved by: Conrad Wheeler M.D. on 04/20/2024 at 0:59 ECG Data Attestation: I personally reviewed and interpreted this ECG as follows: Interpretation: Normal sinus rhythm with rate of 62. No obvious ST segment elevation or depression changes. MS 142, QRS 82, QTC 418. MDM Narrative Medical decision making narrative: 74-year-old female with history of parkinsonism, increased jitteriness, muscle aches, recent resolved cold symptoms, requests COVID testing, worried about possible urine infection. Afebrile, sirs screen negative. Some mild psychomotor agitation, with underlying Parkinsonism. Labs pending. White blood cell count not elevated. Lactate 3.5 elevated. Will give IV fluid bolus. Respiratory panel negative. Chest x-ray no acute changes, see radiology report. CT abdomen and pelvis requested. IV Ativan, jitteriness improved. CT abdomen and pelvis, no acute changes. See radiology report. Urinalysis mildly abnormal, urine culture requested per lab protocol. Will give oral dose of Cefdinir for now, sent prescription to her pharmacy. Repeat lactate normalized 1.0 after IV fluids and Ativan, no longer having tremulousness. Encouraged to take her parkinsonism and other chronic medications. Further antibiotics cefdinir sent to her pharmacy, encouraged to take full course antibiotic, recheck symptoms with the regular doctor advised early next week. Home with family, improved, stable. Return precautions discussed. Discharge Plan Departure Patient Disposition: Home Clinical Impression: Myalgia, Urinary tract infection, History of Parkinson disease Activity Restrictions/Additional Instructions: Muscle aches, history of parkinsonism, labs screening remarkable for elevated lactate, IV fluids given, repeat labs improved. CT abdomen and pelvis showed no acute changes. Respiratory panel was negative for COVID and for influenza and RSV and other lung pathogens tested. Chest x-ray no acute changes. Antinausea medications given. Symptoms improved. Urinalysis was mildly abnormal, but abnormal enough for urine to be cultured by lab protocol. We will start antibiotics in case of urinary tract infection. First dose cefdinir oral antibiotic given by mouth in the emergency department, further doses sent by prescription to your pharmacy. Take antibiotics as prescribed. Continue your parkinsonian and other chronic medications as planned. Drink plenty of fluids. Recheck symptoms with your regular doctor in the next couple of days. Return earlier to this/nearest emergency department for any change worsening symptoms or any concerns prior Prescriptions: New cefdinir 300 mg capsule 300 mg PO BID 10 Days Qty: 20 0RF No Action metformin [Glucophage] 500 MG tablet Qty: 0 lisinopril 10 MG tablet 10 mg PO QDAY Qty: 0 citalopram 10 MG tablet 10 mg PO QDAY Qty: 0 aspirin 81 MG tablet,delayed release (DR/EC) 81 mg PO QDAY Qty: 0 niacin 1,000 MG tablet extended release 1,000 mg PO QDAY Qty: 0 methocarbamol 750 MG tablet 750 mg PO QIDP PRNQty: 0 Referrals: Angie Khan MD [Primary Care Provider] - Stand Alone Forms: Patient Portal/API/Survey
--- NOTE | 2024-04-19 21:22 | EKG_ITS ---
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
[2024-04-19 21:29] LABS: Appearance Urine UA CLEAR
[2024-04-19 21:43] LABS: Add Manual Diff / Slide Review NO; Basophils Absolute Auto 0 /uL (0-100); Basophils Percent Auto 0.5 % (0-2); Eosinophils Absolute Auto 100 /uL (0-450); Eosinophils Percent Auto 1.2 % (2-4); Hematocrit 40.8 % (36-46); Hemoglobin 14.2 g/dL (12.0-16.0); Lymphocytes Absolute Auto 2000 /uL (1100-4500); Lymphocytes Percent Auto 25.9 % (25-40); Mean Corpuscular HGB Conc 34.7 % (30-36); Mean Corpuscular Hemoglobin 32.6 PG (26-34); Monocytes Absolute Auto 800 /uL (0-900); Monocytes Percent Auto 10.3 % (3-14); Neutrophils Absolute Auto 4900 /uL (1500-7000); Neutrophils Percent Auto 62.1 % (50-75); Platelet Count 225 X10^3/uL (150-400); Red Blood Cell Count 4.34 X10^6/uL (4.0-5.2); Red Cell Distribution Width 12.4 % (11.6-14.8); White Blood Cell Count 7.8 X10^3/uL (4.5-11.0)
[2024-04-19 21:49] LABS: Alanine Aminotransferase 18 IU/L (<35); Albumin 4.6 g/dL (3.5-5.0); Albumin Globulin Ratio 1.3 (1.0-2.8); Alkaline Phosphatase 57 U/L (38-126); Aspartate Aminotransferase 25 IU/L (14-36); BUN Creatinine Ratio 20.9 (6-22); Blood Urea Nitrogen 27 mg/dL (7-17); Calcium 11.6 mg/dL (8.4-10.2); Carbon Dioxide 20 mmol/L (22-32); Chloride 101 mmol/L (98-107); Estimated Glomerular Filt Rate 43 mL/min (>60); Globulin 3.6 g/dL (1.7-4.1); Glucose 147 mg/dL (80-110); HEMOLYSIS < 15 (0-50); Lipase 168 U/L (23-300); Potassium 3.7 mmol/L (3.4-5.1); Sodium 135 mmol/L (137-145); Total Protein 8.2 g/dL (6.3-8.2)
[2024-04-19 21:50] LABS: Color Urine UA ORANGE
[2024-04-19 21:51] LABS: Bacteria Urine Occasional (0-1); Culture Indicated Urine Specimen Cultured; RBC Urine None Seen (0-5/HPF); Squamous Epithelial Cell Urine 0-1 /HPF (0-5/HPF); Urine Volume 10mL (spun); WBC Urine 0-1/HPF (0-5/HPF)
[2024-04-19 21:55] LABS: Lactate (Lactic Acid) 3.5 mmol/L (0.7-2.1)
[2024-04-19] MEDS: SODIUM CHLORIDE 0.9% 1,000 ML 500 ML IV (21:58)
[2024-04-19 22:00] LABS: Troponin I < 0.012 ng/mL (0.01-0.034)
--- NOTE | 2024-04-19 22:09 | DI.CT.S_ITS ---
PROCEDURE: CT ABDOMEN PELVIS W CON INDICATIONS: abd pain TECHNIQUE: After the administration of intravenous contrast, axial sections acquired from the lung bases to the pubic symphysis. Coronal and sagittal reformats were performed. For radiation dose reduction, the following was used: automated exposure control, adjustment of mA and/or kV according to patient size. COMPARISON: [facility], CT, CT ABDOMEN PELVIS WO [facility], 01/18/2024, 21:24. FINDINGS: Image quality: Diagnostic. Lower Chest: No significant findings. ABDOMEN: Liver: No solid mass. Gallbladder: No radiopaque gallstones or wall thickening. Biliary ducts: No biliary dilation. Pancreas: No ductal dilation. Spleen: Size is within normal limits. Adrenal Glands: No adrenal nodules. Kidneys and Ureters: No hydronephrosis. Left kidney inferior pole exophytic cyst with increased density measuring 0.8 cm, (2/50), unchanged. Likely a complicated cyst. A few additional low-density cysts. Stomach and Bowel: Stomach is within normal limits. Duodenal diverticulum. No small bowel obstruction. Normal appendix. No diverticulitis. Peritoneum: No abnormal intraperitoneal fluid. No free air. Ventral Wall: No significant ventral hernia. Abdominal Nodes: No retroperitoneal or mesenteric adenopathy by size criteria. Vessels: Aorta and inferior vena cava are normal in size. PELVIS: Pelvic Organs: The appendix is not seen. Bladder: No bladder wall thickening, accounting for underdistention. Pelvic Nodes: No enlarged lymph nodes. Miscellaneous: No inguinal hernias are seen. Bones: No aggressive osseous abnormality. IMPRESSION: No acute abnormality seen. Dictated by: Conrad Wheeler M.D. on 04/19/2024 at 22:52 Approved by: Conrad Wheeler M.D. on 04/19/2024 at 22:59
[2024-04-19] MEDS: LORazepam 2 MG/ML INJ 1 MG IV (22:17)
[2024-04-19] MEDS: CARBIDOPA-LEVODOPA 25/100 TABLET 2 EACH PO (22:33)
[2024-04-19 22:47] LABS: Adenovirus Not Detected (Not Detect); B. parapertussis Not Detected (Not Detecte); Bordetella pertussis Not Detected (Not Detect); Chlamydophila pneumoniae Not Detected (Not Detect); Coronavirus 229E Not Detected (Not Detect); Coronavirus HKU1 Not Detected (Not Detect); Coronavirus NL 63 Not Detected (Not Detect); Coronavirus OC43 Not Detected (Not Detect); Human Metapneumovirus Not Detected (Not Detect); Human Rhinovirus/Enterovirus Not Detected (Not Detect); Influenza A Not Detected (Not Detect); Influenza B Not Detected (Not Detect); Mycoplasma pneumoniae Not Detected (Not Detect); Parainfluenza Virus 1 Not Detected (Not Detect); Parainfluenza Virus 2 Not Detected (Not Detect); Parainfluenza Virus 3 Not Detected (Not Detect); Parainfluenza Virus 4 Not Detected (Not Detect); Respiratory Syncytial Virus Not Detected (Not Detect); SARS- CoV-2 Not Detected (Not Detecte)
[2024-04-19] MEDS: SODIUM CHLORIDE 0.9% 1,000 ML 1000 ML IV (23:10)
[2024-04-19 23:24] LABS: Reflexed Lactate in 2 Hours Y
[2024-04-19] MEDS: CEFDINIR 300 MG CAPSULE PO (23:42)
[2024-04-20] VITALS: PULSE 70; RESP 14
--- NOTE | 2024-04-20 00:05 | DI.RAD.S_ITS ---
PROCEDURE: XR CHEST 1V INDICATIONS: myalgias, eval for pneumonia TECHNIQUE: One view of the chest was acquired. COMPARISON: None. FINDINGS: Surgical changes and devices: None. Lungs and pleura: Lungs are clear. No pleural effusions or pneumothorax. Mediastinum: Mediastinal contours appear normal. Heart size is normal. Bones and chest wall: No suspicious bony lesions. Overlying soft tissues appear unremarkable. IMPRESSION: No acute cardiopulmonary abnormality is seen. Dictated by: Conrad Wheeler M.D. on 04/20/2024 at 0:58 Approved by: Conrad Wheeler M.D. on 04/20/2024 at 0:59
[2024-04-20 00:30] VITALS: PULSE 53; RESP 22
[2024-04-20 00:55] VITALS: BP 157/88; PULSE 60; RESP 27; O2SAT 90
[2024-04-20 01:00] VITALS: PULSE 66; RESP 18
[2024-04-20] MEDS: ONDANSETRON 4 MG ODT PREPACK 1 BOTTLE MISC (01:01)
[2024-04-20 01:14] VITALS: BP 157/88; PULSE 59; RESP 20; TEMP 36.8; O2SAT 97
== END 2024-04-20 01:12 | disposition home or self-care (01) ==
PROVIDERS: Emergency Provider Emergency Medicine; PCP Internal Medicine
DX: N39.0 Urinary tract infection, site not specified (principal); M79.10 Myalgia, unspecified site; G20.A1 Parkinson's disease without dyskinesia, without mention of fluctuations; Z11.52 Encounter for screening for COVID-19
CPT/HCPCS: 36415; 71045; 74177; 80053; 81001; 83605; 83690; 84484; 85025; 87086; 87633; 93005; 93010; 96360; 96361; 99284; J2060

== ENCOUNTER → 2024-05-04 10:37 | Outpatient (CLI) | payer MEDICARE, BC, SELFPAY ==
--- NOTE | 2024-05-04 10:38 | DI.MG.S_ITS ---
BILATERAL DIGITAL SCREENING MAMMOGRAM 3D/2D WITH CAD: 05/04/2024 CLINICAL: Routine screening. Family history of breast cancer. Comparison is made to exams dated: 01/18/2023 mammogram, 11/21/2021 mammogram, 11/15/2020 mammogram, 03/24/2019 mammogram, and 01/31/2023 mammogram - [facility]. There are scattered areas of fibroglandular density (category b / 25%-50% glandular tissue). Current study was also evaluated with a Computer Aided Detection (CAD) system. No significant masses, calcifications, or other findings are seen in either breast. There has been no significant interval change. IMPRESSION: NEGATIVE There is no mammographic evidence of malignancy. A 1 year screening mammogram is recommended. Based on the Tyrer Cuzick model (a risk assessment model) the patient's lifetime risk is 3.9% and her 10 year risk is 3.9%. According to the ACR, ACS, and NCCN guidelines, an annual breast MRI exam along with mammogram is recommended if the patient's lifetime risk is 20% or greater. This exam was interpreted at Station ID: [id number]. NOTE: For mammograms, a report in lay terms will be sent to the patient. Approximately 15% of breast malignancies will not be visualized mammographically. In the management of a palpable breast mass, a negative mammogram must not discourage biopsy of a clinically suspicious lesion. Electronically Signed By: Geno Harvey M.D., Ph.D. kellee/paula:05/04/2024 16:05:20 letter sent: Normal Exam ACR BI-RADS Category 1: Negative
== END ==
PROVIDERS: PCP Internal Medicine; Referring Provider Internal Medicine; Visit Provider Internal Medicine
DX: Z12.31 Encounter for screening mammogram for malignant neoplasm of breast (principal); Z80.3 Family history of malignant neoplasm of breast
CPT/HCPCS: 77063; 77067

== ENCOUNTER → 2024-10-15 10:46 | Outpatient (CLI) | payer MEDICARE, BC, SELFPAY ==
[2024-10-15 12:03] LABS: Hematocrit 39.5 % (36-46); Hemoglobin 13.9 g/dL (12.0-16.0)
[2024-10-15 12:15] LABS: Creatinine Urine Random 198.64 mg/dL; Protein (Total) Urine Random 22 mg/dL (0-12); Protein Creatinine Ratio Urine 0.11 GRAM/24H
[2024-10-15 12:26] LABS: BUN Creatinine Ratio 23.3 (6-22); Blood Urea Nitrogen 31 mg/dL (7-17); Calcium 11.3 mg/dL (8.4-10.2); Carbon Dioxide 26 mmol/L (22-32); Chloride 97 mmol/L (98-107); Estimated Glomerular Filt Rate 42 mL/min (>60); Glucose 146 mg/dL (70-99); HEMOLYSIS < 15 (0-50); Potassium 4.3 mmol/L (3.4-5.1); Sodium 135 mmol/L (137-145)
[2024-10-17 03:13] LABS: Parathyroid Hormone Int 8 pg/mL (15-65)
== END ==
LOC: LAB 10:47
PROVIDERS: PCP Internal Medicine; Referring Provider Student in an Organized Health Care Education/Training Program; Visit Provider Student in an Organized Health Care Education/Training Program
DX: D70.9 Neutropenia, unspecified (principal); D63.1 Anemia in chronic kidney disease; N05.9 Unspecified nephritic syndrome with unspecified morphologic changes; N25.81 Secondary hyperparathyroidism of renal origin; R80.9 Proteinuria, unspecified
CPT/HCPCS: 36415; 80048; 82570; 83970; 84156; 85014; 85018

== ENCOUNTER 2024-10-22 11:28 | Emergency (ER) | payer BC, MEDICARE, SELFPAY ==
[2024-10-22 11:31] VITALS: BP 183/84; PULSE 54; RESP 18; TEMP 36.3; O2SAT 99; BMI 22.3
--- NOTE | 2024-10-22 11:45 | EKG_ITS ---
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
[2024-10-22 11:54] LABS: Appearance Urine UA CLEAR; Bilirubin Urine UA NEGATIVE (NEGATIVE); Color Urine UA YELLOW; Glucose Urine UA NEGATIVE (Negative); Ketones Urine UA NEGATIVE (NEGATIVE); Leukocyte Esterase Urine UA NEGATIVE (NEGATIVE); Nitrite Urine UA NEGATIVE (Negative); Occult Blood Urine UA TRACE-INTACT (Negative); Protein Urine UA 1+ (Negative); Specific Gravity Urine UA <=1.005 (1.000-1.035); Urobilinogen Urine UA 0.2 E.U./dL (0.2)
[2024-10-22 12:04] LABS: pH Urine UA 6.5 (4.5-8.0)
[2024-10-22 12:15] LABS: Bacteria Urine None Seen; Culture Indicated Urine Cult Not Indicated; RBC Urine 1-5/HPF (0-5/HPF); Squamous Epithelial Cell Urine 0-1 /HPF (0-5/HPF); Urine Volume 10mL (spun); WBC Urine None Seen (0-5/HPF)
[2024-10-22 12:43] LABS: Add Manual Diff / Slide Review NO; Basophils Absolute Auto 100 /uL (0-100); Basophils Percent Auto 0.9 % (0-2); Eosinophils Absolute Auto 0 /uL (0-450); Eosinophils Percent Auto 0.6 % (2-4); Hematocrit 43.7 % (36-46); Hemoglobin 15.1 g/dL (12.0-16.0); Lymphocytes Absolute Auto 1600 /uL (1100-4500); Lymphocytes Percent Auto 21.9 % (25-40); Mean Corpuscular HGB Conc 34.6 % (30-36); Mean Corpuscular Hemoglobin 33.1 PG (26-34); Mean Corpuscular Volume 95.6 fL (80-100); Monocytes Absolute Auto 700 /uL (0-900); Neutrophils Absolute Auto 4900 /uL (1500-7000); Neutrophils Percent Auto 66.6 % (50-75); Platelet Count 245 X10^3/uL (150-400); Red Blood Cell Count 4.58 X10^6/uL (4.0-5.2); Red Cell Distribution Width 12.3 % (11.6-14.8); White Blood Cell Count 7.4 X10^3/uL (4.5-11.0)
[2024-10-22 12:46] LABS: Alanine Aminotransferase 12 IU/L (<35); Albumin 5.2 g/dL (3.5-5.0); Albumin Globulin Ratio 1.3 (1.0-2.8); Alkaline Phosphatase 40 U/L (38-126); Aspartate Aminotransferase 36 IU/L (14-36); BUN Creatinine Ratio 18.9 (6-22); Blood Urea Nitrogen 23 mg/dL (7-17); Calcium 10.8 mg/dL (8.4-10.2); Carbon Dioxide 24 mmol/L (22-32); Chloride 98 mmol/L (98-107); Estimated Glomerular Filt Rate 46 mL/min (>60); Globulin 4.1 g/dL (1.7-4.1); Glucose 147 mg/dL (70-99); Sodium 135 mmol/L (137-145); Total Protein 9.3 g/dL (6.3-8.2)
[2024-10-22 12:50] LABS: HEMOLYSIS 108 (0-50); Potassium 4.7 mmol/L (3.4-5.1)
[2024-10-22] MEDS: SODIUM CHLORIDE 0.9% 1,000 ML 1000 ML IV (14:37)
[2024-10-22] MEDS: ACETAMINOPHEN 325 MG TABLET 650 MG PO (14:38)
[2024-10-22] MEDS: CARBIDOPA-LEVODOPA 25/100 TABLET 2 EACH PO (14:38)
--- NOTE | 2024-10-23 12:05 | ED.ABDPAIN ---
HPI - Abdominal Pain General Chief Complaint: Urogenital-Female Stated Complaint: N/V no urine Output for 2 weeks Time Seen by Provider: 10/22/24 16:58 Source: patient Mode of arrival: Ambulatory Related Data Home Medications ?Medication ?Instructions ?Recorded ?Confirmed metformin 500 mg tablet ##0 11/17/09 (Glucophage) aspirin 81 mg tablet,delayed 81 mg PO QDAY ##0 11/15/16 release citalopram 10 mg tablet 10 mg PO QDAY ##0 11/15/16 lisinopril 10 mg tablet 10 mg PO QDAY ##0 11/15/16 methocarbamol 750 mg tablet 750 mg PO QIDP PRN ##0 11/15/16 niacin 1,000 mg tablet,extended 1,000 mg PO QDAY ##0 11/15/16 release Allergies Allergy/AdvReac Type Severity Reaction Status Date / Time No Known Drug Allergies Allergy Verified 10/23/24 10:01 Patient History Smoking Status: Never smoker Exam Initial Vital Signs Initial Vital Signs: Vital Signs Temperature 97.3 F L 10/22/24 11:31 Pulse Rate 54 L 10/22/24 11:31 Respiratory Rate 18 10/22/24 11:31 Blood Pressure 183/84 H 10/22/24 11:31 Pulse Oximetry 99 10/22/24 11:31 Oxygen Delivery Method Room Air 10/22/24 11:31 Course Orders Ordered: Discontinued Medications Acetaminophen (Acetaminophen 325 Mg Tablet) 650 mg PO NOW ONE Stop: 10/22/24 14:27 Last Admin: 10/22/24 14:38 Dose: 650 mg Documented By: SEBASTIAN Carbidopa/Levodopa (Carbidopa-Levodopa 25/100 Tablet) 2 each PO NOW ONE Stop: 10/22/24 14:32 Last Admin: 10/22/24 14:38 Dose: 2 each Documented By: SEBASTIAN Sodium Chloride (Normal Saline 0.9%) 1,000 mls @ 1,000 mls/hr IV BOLUS ONE Stop: 10/22/24 15:25 Last Infusion: 10/22/24 15:59 Dose: Infused Documented By: Admin: 10/22/24 14:37 Dose: 1,000 mls/hr Documented By: SEBASTIAN MDM - Abdominal Pain Lab Data 10/22/24 12:25 10/22/24 12:25 Labs: Lab Results 10/22/24 10/22/24 Range/Units 11:39 12:25 WBC 7.4 (4.5-11.0) X10^3/uL RBC 4.58 (4.0-5.2) X10^6/uL Hgb 15.1 (12.0-16.0) g/dL Hct 43.7 (36-46) % MCV 95.6 (80-100) fL MCH 33.1 (26-34) PG MCHC 34.6 (30-36) % RDW 12.3 (11.6-14.8) % Plt Count 245 (150-400) X10^3/uL Neut % (Auto) 66.6 (50-75) % Lymph % (Auto) 21.9 L (25-40) % [place] % (Auto) 10.0 (3-14) % Eos % (Auto) 0.6 L (2-4) % Baso % (Auto) 0.9 (0-2) % Neut # (Auto) 4900 (2422-0488) /uL Lymph # (Auto) 1600 (2536-3257) /uL [place] # (Auto) 700 (0-900) /uL Eos # (Auto) 0 (0-450) /uL Baso # (Auto) 100 (0-100) /uL Sodium 135 L (137-145) mmol/L Potassium 4.7 (3.4-5.1) mmol/L Chloride 98 (98-107) mmol/L Carbon Dioxide 24 (22-32) mmol/L BUN 23 H (7-17) mg/dL Creatinine 1.22 H (0.52-1.04) mg/dL Estimated GFR 46 L (>60) mL/min BUN/Creatinine Ratio 18.9 (6-22) Glucose 147 H (70-99) mg/dL Calcium 10.8 H (8.4-10.2) mg/dL Total Bilirubin 1.0 (0.2-1.3) mg/dL AST 36 (14-36) IU/L ALT 12 (<35) IU/L Alkaline Phosphatase 40 (38-126) U/L Total Protein 9.3 H (6.3-8.2) g/dL Albumin 5.2 H (3.5-5.0) g/dL Globulin 4.1 (1.7-4.1) g/dL Albumin/Globulin Ratio 1.3 (1.0-2.8) Urine Color Yellow Urine Appearance Clear Urine pH 6.5 (4.5-8.0) Ur Specific [place] <=1.005 (1.000-1.035) Urine Protein 1+ H (Negative) Urine Glucose (UA) Negative (Negative) g/dL Urine Ketones Negative (NEGATIVE) Urine Occult Blood Trace-intact (Negative) Urine Nitrate Negative (Negative) Urine Bilirubin Negative (NEGATIVE) Urine Urobilinogen 0.2 (0.2) E.U./dL Ur Leukocyte Esterase Negative (NEGATIVE) Urine RBC 1-5/hpf (0-5/HPF) Urine WBC None seen (0-5/HPF) Ur Squamous Epith Cells 0-1 /hpf (0-5/HPF) Urine Bacteria None seen (None) Ur Culture Indicated? Cult not indicated Vol Urine Centrifuged 10ml (spun) Discharge Plan Departure Patient Disposition: Left Without Being Seen Clinical Impression: Patient left after triage Prescriptions: No Action metformin [Glucophage] 500 MG tablet Qty: 0 lisinopril 10 MG tablet 10 mg PO QDAY Qty: 0 citalopram 10 MG tablet 10 mg PO QDAY Qty: 0 aspirin 81 MG tablet,delayed release (DR/EC) 81 mg PO QDAY Qty: 0 niacin 1,000 MG tablet extended release 1,000 mg PO QDAY Qty: 0 methocarbamol 750 MG tablet 750 mg PO QIDP PRNQty: 0
== END 2024-10-22 17:00 | disposition left against medical advice (07) ==
PROVIDERS: Emergency Provider Student in an Organized Health Care Education/Training Program; PCP Internal Medicine
DX: R11.2 Nausea with vomiting, unspecified (principal); R39.12 Poor urinary stream; R00.1 Bradycardia, unspecified
CPT/HCPCS: 36415; 51798; 80053; 81001; 85025; 93005; 93010; 96360; 99284

== ENCOUNTER 2024-10-23 09:25 | Emergency (ER) | payer MEDICARE, BC, SELFPAY ==
[2024-10-23 10:01] VITALS: BP 183/86; PULSE 68; RESP 18; TEMP 36.3; O2SAT 98; BMI 22.3
--- NOTE | 2024-10-23 10:22 | ED_ITS ---
HPI - Abdominal Pain General Chief Complaint: Abdominal Pain Stated Complaint: Still not feeling good from ER visit Yesterday Time Seen by Provider: 10/23/24 10:13 Source: patient Mode of arrival: Family Vehicle History of Present Illness HPI narrative: Patient here with . History of hypertension diabetes hypercholesteremia, complains 3 weeks of nausea vomiting dry heaves and lower abdominal pain. Patient seen by primary care October 09 but only labs were done and no prescriptions were nausea were done. Patient seen by her maintenance groundskeeper yesterday in the office, [facility] maintenance groundskeeper and was sent here for hypercalcemia however calcium was 10.8. Patient was not seen in the ER yesterday but laboratory studies were done and 1 L normal saline was given. Patient was feeling better when she left without being seen however symptoms returned overnight. Patient has had little to drink she states has had little urine output. Patient has been taking Tylenol at home without relief for suprapubic lower abdominal pain. Related Data Home Medications ?Medication ?Instructions ?Recorded ?Confirmed metformin 500 mg tablet ##0 11/17/09 (Glucophage) aspirin 81 mg tablet,delayed 81 mg PO QDAY ##0 7 release citalopram 10 mg tablet 10 mg PO QDAY ##0 11/15/16 lisinopril 10 mg tablet 10 mg PO QDAY ##0 11/15/16 methocarbamol 750 mg tablet 750 mg PO QIDP PRN ##0 02/22 niacin 1,000 mg tablet,extended 1,000 mg PO QDAY ##0 0 11/15/16 release Previous Rx's ?Medication ?Instructions ?Recorded cefdinir 300 mg capsule 300 mg PO BID #10 caps 10/23 ondansetron 4 mg disintegrating 4 mg PO Q6H PRN nausea and 10/23/24 tablet vomiting #20 tabs phenazopyridine 100 mg tablet 100 mg PO TID PRN pain 6 doses #6 10/23/24 (Pyridium) tabs Allergies Allergy/AdvReac Type Severity Reaction Status Date / Time No Known Drug Allergies Allergy Verified 10/23/24 10:01 Review of Systems Review of Systems Narrative: GENERAL: Negative chills, fatigue, malaise, fever, sweats. HEENT: Negative sinus pain, ear pain, sore throat RESPIRATORY: Negative dyspnea, cough CARDIOVASCULAR: Negative chest pain, palpitations GASTROINTESTINAL: Positive vomiting, nausea, abdominal pain : Negative dysuria, frequency, hematuria MUSCULOSKELETAL: Negative muscle or bony pain SKIN: Negative rash, skin lesions NEUROLOGIC: Negative weakness, numbness ROS Unobtainable: All systems reviewed & are unremarkable except as noted in HPI and below Exam Narrative Exam Narrative: GENERAL: in no distress, not toxic not dyspneic HEAD: Normocephalic. EYES: Pupils equal round ENT: Mucous membranes moist. NECK: Trachea midline. CARDIOVASCULAR: Regular rate and rhythm RESPIRATORY: Clear to auscultation. Breath sounds equal bilaterally. No wheezes, rales, or rhonchi. GASTROINTESTINAL: Abdomen soft, reproducible suprapubic tenderness. No peritoneal signs no guarding or rebound. Bowel sounds are present. No CVA tenderness EXTREMITIES: No gross deformities. BACK: No flank tenderness. NEURO: AOx4. Clear speech SKIN: Warm and dry PSYCH: Not anxious, is cooperative Initial Vital Signs Initial Vital Signs: Vital Signs Temperature 97.3 F L 10/23/24 10:01 Pulse Rate 68 10/23/24 10:01 Respiratory Rate 18 10/23/24 10:01 Blood Pressure 183/86 H 10/23/24 10:01 Pulse Oximetry 98 10/23/24 10:01 Oxygen Delivery Method Room Air 10/23/24 10:01 Course Orders Ordered: Discontinued Medications Hydromorphone HCl (Hydromorphone 1 Mg Inj) 1 mg IV NOW ONE Stop: 10/23/24 11:36 Last Admin: 10/23/24 11:42 Dose: 1 mg Documented By: Sodium Chloride (Normal Saline 0.9%) 1,000 mls @ 1,000 mls/hr IV BOLUS ONE Stop: 10/23/24 11:20 Last Infusion: 10/23/24 12:06 Dose: Infused Documented By: Admin: 10/23/24 11:01 Dose: 1,000 mls/hr Documented By: Ceftriaxone Sodium 2,000 mg/ (Sodium Chloride) 100 mls @ 200 mls/hr IV NOW ONE Stop: 10/23/24 11:43 Last Infusion: 10/23/24 12:31 Dose: Infused Documented By: Admin: 10/23/24 11:57 Dose: 200 mls/hr Documented By: Morphine Sulfate (Morphine 4 Mg/Ml Inj) 4 mg IV NOW ONE Stop: 10/23/24 10:22 Last Admin: 10/23/24 11:01 Dose: 4 mg Documented By: Ondansetron HCl (Ondansetron 4 Mg/2 Ml Inj) 4 mg IV NOW PRN PRN Reason: Nausea And Vomiting Last Admin: 10/23/24 11:08 Dose: 4 mg Documented By: Ondansetron HCl (Ondansetron 4 Mg Odt) 4 mg PO NOW PRN PRN Reason: Nausea And Vomiting Phenazopyridine HCl (Phenazopyridine 100 Mg Tablet) 100 mg PO NOW ONE Stop: 10/23/24 11:43 Last Admin: 10/23/24 12:00 Dose: 100 mg Documented By: Vital Signs Vital signs: Vital Signs - 8 hr 10/23/24 10:01 10/23/24 11:03 10/23/24 11:10 Temperature 97.3 F L Pulse Rate 68 61 59 L Respiratory Rate 18 Blood Pressure 183/86 H Pulse Oximetry 98 100 99 Oxygen Delivery Method Room Air Oxygen Flow Rate 10/23/24 11:10 10/23/24 11:30 10/23/24 11:30 Temperature Pulse Rate 61 Respiratory Rate Blood Pressure 178/84 H 192/84 H Pulse Oximetry 99 Oxygen Delivery Method Oxygen Flow Rate 10/23/24 12:00 10/23/24 12:05 10/23/24 12:05 Temperature Pulse Rate 61 54 L Respiratory Rate Blood Pressure 165/70 H Pulse Oximetry 98 98 Oxygen Delivery Method Nasal Cannula Oxygen Flow Rate 1 MDM - Abdominal Pain Lab Data 10/23/24 10:50 10/23/24 10:50 Labs: Lab Results 10/23/24 10/23/24 Range/Units 10:21 10:50 WBC 6.6 (4.5-11.0) X10^3/uL RBC 4.24 (4.0-5.2) X10^6/uL Hgb 13.8 (12.0-16.0) g/dL Hct 40.6 (36-46) % MCV 95.7 (80-100) fL MCH 32.4 (26-34) PG MCHC 33.9 (30-36) % RDW 12.4 (11.6-14.8) % Plt Count 232 (150-400) X10^3/uL Neut % (Auto) 65.9 (50-75) % Lymph % (Auto) 22.0 L (25-40) % [place] % (Auto) 10.5 (3-14) % Eos % (Auto) 0.7 L (2-4) % Baso % (Auto) 0.9 (0-2) % Neut # (Auto) 4300 (0337-0877) /uL Lymph # (Auto) 1500 (5640-1171) /uL [place] # (Auto) 700 (0-900) /uL Eos # (Auto) 0 (0-450) /uL Baso # (Auto) 100 (0-100) /uL Sodium 135 L (137-145) mmol/L Potassium 4.2 (3.4-5.1) mmol/L Chloride 100 (98-107) mmol/L Carbon Dioxide 24 (22-32) mmol/L BUN 20 H (7-17) mg/dL Creatinine 1.07 H (0.52-1.04) mg/dL Estimated GFR 54 L (>60) mL/min BUN/Creatinine Ratio 18.7 (6-22) Glucose 179 H (70-99) mg/dL Calcium 9.9 (8.4-10.2) mg/dL Total Bilirubin 0.8 (0.2-1.3) mg/dL AST 31 (14-36) IU/L ALT 15 (<35) IU/L Alkaline Phosphatase 49 (38-126) U/L Total Protein 7.9 (6.3-8.2) g/dL Albumin 4.8 (3.5-5.0) g/dL Globulin 3.1 (1.7-4.1) g/dL Albumin/Globulin Ratio 1.5 (1.0-2.8) Lipase 187 (23-300) U/L Urine Color Yellow Urine Appearance Clear Urine pH 7.0 (4.5-8.0) Ur Specific [place] 1.015 (1.000-1.035) Urine Protein 2+ H (Negative) Urine Glucose (UA) Negative (Negative) g/dL Urine Ketones Negative (NEGATIVE) Urine Occult Blood Negative (Negative) Urine Nitrate Positive H (Negative) Urine Bilirubin Negative (NEGATIVE) Urine Urobilinogen 1.0 (0.2) E.U./dL Ur Leukocyte Esterase Negative (NEGATIVE) Urine RBC None seen (0-5/HPF) Urine WBC 5-10/hpf H (0-5/HPF) Ur Squamous Epith Cells 5-10 /hpf H (0-5/HPF) Urine Bacteria Few (2-10) H (None) Urine Mucus 1+ H (Negative) Ur Culture Indicated? Specimen cultured Vol Urine Centrifuged 10ml (spun) Imaging Data CT scan - abdomen/pelvis: Radiologist's Impression: [address] [address] [address] Scan Report Signed Patient: Mónica Banuelos MR#: [id number] : 1950 Acct:[id number] Age/Sex: 74 / F Date of Service: 10/23/24 Loc: ED Accession Number: [id number] Procedure: CT abdomen pelvis wo con Ordering Provider: Vasyl Gurrola MD PROCEDURE: CT ABDOMEN PELVIS WO CON INDICATIONS: Lower abdominal pain TECHNIQUE: Axial sections were acquired from the lung bases to the pubic symphysis. Coronal and sagittal reformats were performed. For radiation dose reduction, the following was used: automated exposure control, adjustment of mA and/or kV according to patient size. COMPARISON: [facility], CT, CT ABDOMEN PELVIS WO CON, 01/18/2024, 21:24. FINDINGS: Image quality: Diagnostic. Lower Chest: No significant findings. URINARY: Right Kidney: No stones or hydronephrosis. Right Ureter: No hydroureter. Left Kidney: No stones or hydronephrosis. Subcentimeter hyperdensity at the superior pole, likely a proteinaceous or hemorrhagic cyst. Left Ureter: No hydroureter. Bladder: Normal wall thickness. No stones. ABDOMEN: Liver: No contour-deforming solid mass. Gallbladder: No radiopaque gallstones or wall thickening. Biliary ducts: No biliary dilation. Pancreas: No ductal dilation. Spleen: Size is within normal limits. Adrenal Glands: No adrenal nodules. Stomach and Bowel: Duodenal diverticulum is noted. Normal colonic caliber, without significant wall thickening. Normal appendix. Peritoneum: No abnormal intraperitoneal fluid. No free air. Ventral Wall: No hernia. Abdominal Nodes: No enlarged retroperitoneal or mesenteric lymph nodes. Vessels: Aorta and inferior vena cava are normal in size. Atherosclerotic vascular calcifications. PELVIS: Pelvic Organs: Unremarkable. Pelvic Nodes: Unremarkable. Miscellaneous: No inguinal hernias are seen. Bones: Degenerative changes of the spine. IMPRESSION: No obstructing stones or hydronephrosis. No acute findings within the abdomen or pelvis to explain patient's symptoms. Dictated by: Anthony Jefferson M.D. on 10/23/2024 at 11:04 Approved by: Anthony Jefferson M.D. on 10/23/2024 at 11:12 [facility] Narrative Medical decision making narrative: Patient here with . History of hypertension diabetes hypercholesteremia, complains 3 weeks of nausea vomiting dry heaves and lower abdominal pain. Patient seen by primary care October 09 but only labs were done and no prescriptions were nausea were done. Patient seen by her maintenance groundskeeper yesterday in the office, [facility] maintenance groundskeeper and was sent here for hypercalcemia however calcium was 10.8. Patient was not seen in the ER yesterday but laboratory studies were done and 1 L normal saline was given. Patient was feeling better when she left without being seen however symptoms returned overnight. Patient has had little to drink she states has had little urine output. Patient has been taking Tylenol at home without relief for suprapubic lower abdominal pain. After history and exam, CBC CMP urinalysis morphine Zofran normal saline CT abdomen pelvis [facility] Medical records reviewed: Labs from yesterday Differential considered: Includes but not limited to cystitis pyelonephritis kidney stone colitis bowel obstruction Lab Test results independently reviewed as above. Pertinent findings: WBC 6.6 hemoglobin 13.8 sodium 135 potassium 4.2 BUN 20 creatinine 1.07 GFR 54 urinalysis positive nitrate WBC 5-10 bacteria few Imaging studies independently reviewed: CT abdomen pelvis no acute finding Consultations: None indicated at this time Re-evaluations: 12:10 p.m.. Updated patient. Likely UTI cystitis causing her symptoms. She does recall having similar symptoms with bladder infection in the past. She did try Pyridium without effect recently however no antibiotics. Return precautions reviewed. Nontoxic at discharge. Blood pressure and pain has improved. They desire discharge home. Discussion: Appropriate for discharge home. Exam is reassuring. Return precautions reviewed patient and . Has been driving. Antibiotics have been started. Return precautions reviewed. Prescriptions provided. They desire discharge home Diagnosis: Acute cystitis Discharge Plan Departure Patient Disposition: Home Clinical Impression: Acute UTI Instructions: DI for Urinary Tract Infection (UTI) Activity Restrictions/Additional Instructions: Your exam and laboratory studies imaging studies are reassuring. You are being treated for urinary tract infection. See your family doctor this week for re- evaluation. Keep well hydrated. Prescriptions have been provided for you. Return if worse if any questions or concerns. Prescriptions: New phenazopyridine [Pyridium] 100 mg tablet 100 mg PO TID PRN (Reason: pain) Qty: 6 0RF ondansetron 4 mg tablet,disintegrating 4 mg PO Q6H PRN (Reason: nausea and vomiting) Qty: 20 0RF cefdinir 300 mg capsule 300 mg PO BID Qty: 10 0RF No Action metformin [Glucophage] 500 MG tablet Qty: 0 lisinopril 10 MG tablet 10 mg PO QDAY Qty: 0 citalopram 10 MG tablet 10 mg PO QDAY Qty: 0 aspirin 81 MG tablet,delayed release (DR/EC) 81 mg PO QDAY Qty: 0 niacin 1,000 MG tablet extended release 1,000 mg PO QDAY Qty: 0 methocarbamol 750 MG tablet 750 mg PO QIDP PRNQty: 0 Referrals: Angie Khan MD [Primary Care Provider, Internal Medicine] Stand Alone Forms: Patient Portal/API
[2024-10-23 11:01] LABS: Appearance Urine UA CLEAR; Bilirubin Urine UA NEGATIVE (NEGATIVE); Color Urine UA YELLOW; Glucose Urine UA NEGATIVE (Negative); Ketones Urine UA NEGATIVE (NEGATIVE); Leukocyte Esterase Urine UA NEGATIVE (NEGATIVE); Nitrite Urine UA POSITIVE (Negative); Occult Blood Urine UA NEGATIVE (Negative); Protein Urine UA 2+ (Negative); Specific Gravity Urine UA 1.015 (1.000-1.035)
[2024-10-23 11:01] LABS: Add Manual Diff / Slide Review NO; Basophils Absolute Auto 100 /uL (0-100); Basophils Percent Auto 0.9 % (0-2); Eosinophils Absolute Auto 0 /uL (0-450); Eosinophils Percent Auto 0.7 % (2-4); Hematocrit 40.6 % (36-46); Hemoglobin 13.8 g/dL (12.0-16.0); Lymphocytes Absolute Auto 1500 /uL (1100-4500); Mean Corpuscular HGB Conc 33.9 % (30-36); Mean Corpuscular Hemoglobin 32.4 PG (26-34); Mean Corpuscular Volume 95.7 fL (80-100); Monocytes Absolute Auto 700 /uL (0-900); Monocytes Percent Auto 10.5 % (3-14); Neutrophils Absolute Auto 4300 /uL (1500-7000); Neutrophils Percent Auto 65.9 % (50-75); Platelet Count 232 X10^3/uL (150-400); Red Blood Cell Count 4.24 X10^6/uL (4.0-5.2); Red Cell Distribution Width 12.4 % (11.6-14.8); White Blood Cell Count 6.6 X10^3/uL (4.5-11.0)
[2024-10-23] MEDS: SODIUM CHLORIDE 0.9% 1,000 ML 1000 ML IV (11:01)
[2024-10-23] MEDS: MORPHINE 4 MG/ML INJ IV (11:01)
[2024-10-23 11:03] VITALS: PULSE 61; O2SAT 100
[2024-10-23] MEDS: ONDANSETRON 4 MG/2 ML INJ IV (11:08)
[2024-10-23 11:10] VITALS: BP 178/84; PULSE 59; O2SAT 99
[2024-10-23 11:10] LABS: Bacteria Urine Few (2-10); Culture Indicated Urine Specimen Cultured; Mucus Urine 1+ (Negative); RBC Urine None Seen (0-5/HPF); Squamous Epithelial Cell Urine 5-10 /HPF (0-5/HPF); Urine Volume 10mL (spun); WBC Urine 5-10/HPF (0-5/HPF)
[2024-10-23 11:13] LABS: Alanine Aminotransferase 15 IU/L (<35); Albumin 4.8 g/dL (3.5-5.0); Albumin Globulin Ratio 1.5 (1.0-2.8); Alkaline Phosphatase 49 U/L (38-126); Aspartate Aminotransferase 31 IU/L (14-36); BUN Creatinine Ratio 18.7 (6-22); Bilirubin Total 0.8 mg/dL (0.2-1.3); Blood Urea Nitrogen 20 mg/dL (7-17); Calcium 9.9 mg/dL (8.4-10.2); Carbon Dioxide 24 mmol/L (22-32); Chloride 100 mmol/L (98-107); Estimated Glomerular Filt Rate 54 mL/min (>60); Globulin 3.1 g/dL (1.7-4.1); Glucose 179 mg/dL (70-99); HEMOLYSIS 16 (0-50); Lipase 187 U/L (23-300); Potassium 4.2 mmol/L (3.4-5.1); Sodium 135 mmol/L (137-145); Total Protein 7.9 g/dL (6.3-8.2)
[2024-10-23 11:30] VITALS: BP 192/84; PULSE 61; O2SAT 99
[2024-10-23] MEDS: HYDROMORPHONE 1 MG INJ IV (11:42)
[2024-10-23] MEDS: cefTRIAXone 2,000 MG in SODIUM CHLORIDE 0.9% 100 ML 200 MG IV (11:57)
[2024-10-23 12:00] VITALS: PULSE 61; O2SAT 98
[2024-10-23] MEDS: PHENAZOPYRIDINE 100 MG TABLET PO (12:00)
[2024-10-23 12:05] VITALS: BP 165/70; PULSE 54; O2SAT 98
== END 2024-10-23 12:45 | disposition home or self-care (01) ==
PROVIDERS: Emergency Provider Emergency Medicine; PCP Internal Medicine
DX: N39.0 Urinary tract infection, site not specified (principal); R11.2 Nausea with vomiting, unspecified
CPT/HCPCS: 74176; 80053; 81001; 83690; 85025; 87086; 96365; 96375; 99284; J0696; J1171; J2270; J2405

== ENCOUNTER → 2024-11-27 10:25 | Outpatient (CLI) | payer MEDICARE, BC, SELFPAY ==
[2024-11-27 11:02] LABS: Hemoglobin 12.3 g/dL (12.0-16.0)
[2024-11-27 11:25] LABS: Albumin 4.2 g/dL (3.5-5.0); Blood Urea Nitrogen 32 mg/dL (7-17); Calcium 9.9 mg/dL (8.4-10.2); Carbon Dioxide 24 mmol/L (22-32); Chloride 101 mmol/L (98-107); Estimated Glomerular Filt Rate 51 mL/min (>60); Glucose 253 mg/dL (70-99); HEMOLYSIS < 15 (0-50); Phosphorous 3.7 mg/dL (2.8-4.1); Potassium 4.1 mmol/L (3.4-5.1); Sodium 136 mmol/L (137-145)
[2024-11-27 14:37] LABS: Protein (Total) Urine Random 12 mg/dL (0-12); Protein Creatinine Ratio Urine 0.07 GRAM/24H
== END ==
PROVIDERS: PCP Internal Medicine; Referring Provider Student in an Organized Health Care Education/Training Program; Visit Provider Student in an Organized Health Care Education/Training Program
DX: N18.32 Chronic kidney disease, stage 3b (principal)
CPT/HCPCS: 36415; 80069; 82310; 82570; 82652; 83970; 84156; 85018